=== PATIENT | male | born 1950 | race Caucasian/White ===

== ENCOUNTER 2019-03-31 23:12 | Emergency (ER) | payer MEDICARE ==
[~2019-03-31] VITALS: Ht 170.2 cm; Wt 56.8 kg
[2019-03-31] MEDS ORDERED: acetaminophen 325mg tablet PO ONE ×2 (23:25→23:55)
[2019-03-31] MEDS ORDERED: normal saline 1000ML IV soln IVB ONE (23:55)
[2019-04-01 00:34] LABS: BASOPHILS # (AUTO) 0.2 X10'3 (0-0.2); BASOPHILS % (AUTO) 1.6 % (0-1); EOSINOPHILS # (AUTO) 0.2 X10'3 (0-0.9); EOSINOPHILS % (AUTO) 1.1 % (0-6); HEMATOCRIT 43.7 % (42.0-52.0); LYMPHOCYTES # (AUTO) 1.4 X10'3 (1.1-4.8); LYMPHOCYTES % (AUTO) 9.8 % (21-51); MEAN CORPUSCULAR HEMOGLOBIN 31.9 PG (27.0-31.0); MEAN CORPUSCULAR HGB CONC 34.4 g/dL (33.0-36.5); MEAN CORPUSCULAR VOLUME 92.9 FL (78-98); MEAN PLATELET VOLUME 7.6 FL (7.4-10.4); MONOCYTES # (AUTO) 1.6 X10'3 (0-0.9); MONOCYTES % (AUTO) 10.7 % (2-12); NEUTROPHILS # (AUTO) 11.1 X10'3 (1.8-7.7); NEUTROPHILS % (AUTO) 76.8 % (42-75); PLATELET COUNT 316 X10'3 (140-440); RED BLOOD COUNT 4.71 X10'6 (4.70-6.10); RED CELL DISTRIBUTION WIDTH 13.4 % (11.5-14.5); WHITE BLOOD COUNT 14.5 X10'3 (4.5-11.0)
[2019-04-01 00:37] LABS: ALANINE AMINOTRANSFERASE 50 U/L (12-78); ALBUMIN 3.8 G/DL (3.4-5.0); ALKALINE PHOSPHATASE 155 IU/L (46-116); ANION GAP 8 (8-16); ASPARTATE AMINO TRANSFERASE 28 U/L (10-37); BILIRUBIN,TOTAL 0.2 MG/DL (0.1-1.0); BLOOD UREA NITROGEN 16 MG/DL (7-18); BUN/CREATININE RATIO 15.4 (5.4-32.0); CALCIUM 8.9 MG/DL (8.5-10.1); CHLORIDE 103 MMOL/L (99-107); CREATININE 1.04 MG/DL (0.60-1.10); GLUCOSE 113 MG/DL (70-104); POTASSIUM 4.5 MMOL/L (3.5-5.1); SODIUM 138 MMOL/L (135-145); TOTAL CARBON DIOXIDE 27.5 MMOL/L (24-32); TOTAL PROTEIN 7.8 G/DL (6.4-8.2); eGFR 71 ML/MIN
[2019-04-01] MEDS ORDERED: ketorolac tromethamine 15mg/ml inj. IV ONE (00:45)
[2019-04-01 01:08] LABS: PLATELET ESTIMATE NORMAL; TOTAL CELLS COUNTED 100
[2019-04-01] MEDS ORDERED: DOXYCYCLINE 100MG CAPSULE PO STA (01:13)
[2019-04-01] MEDS ORDERED: triamcinolone acetonide 40mg/ml inj IJ ONE (01:15)
[2019-04-01] MEDS ORDERED: DOXY100C2 PO (01:16)
[2019-04-01] MEDS ORDERED: PRED20TA PO (01:16)
[2019-04-01 01:58] VITALS: BP 124/76
== END 2019-04-01 02:01 | disposition home or self-care (01) ==
LOC: ER 23:12
DX: J06.9 Acute upper respiratory infection, unspecified (principal); J44.9 Chronic obstructive pulmonary disease, unspecified; F17.210 Nicotine dependence, cigarettes, uncomplicated; Z56.0 Unemployment, unspecified; Z79.899 Other long term (current) drug therapy
CPT/HCPCS: 36415; 71046; 80053; 83605; 84145; 85025; 87502; 87503; 96374; 96375; 99284; J1885; J3301; J7030

== ENCOUNTER 2019-06-15 23:54 | Emergency (ER) | payer MEDICARE ==
[~2019-06-15] VITALS: Ht 170.2 cm; Wt 53.4 kg
[2019-06-16 00:03] VITALS: BP 117/72
== END 2019-06-16 00:24 | disposition home or self-care (01) ==
LOC: ER 23:54
DX: S80.822A Blister (nonthermal), left lower leg, initial encounter (principal); J44.9 Chronic obstructive pulmonary disease, unspecified; F17.200 Nicotine dependence, unspecified, uncomplicated; Z56.0 Unemployment, unspecified; Z88.8 Allergy status to other drugs, medicaments and biological substances; X58.XXXA Exposure to other specified factors, initial encounter; Y93.89 Activity, other specified; Y92.89 Other specified places as the place of occurrence of the external cause; Y99.8 Other external cause status
CPT/HCPCS: 99281

== ENCOUNTER 2019-07-12 03:40 | Emergency (ER) | payer MEDICARE ==
[~2019-07-12] VITALS: Ht 167.6 cm; Wt 59.1 kg
[2019-07-12 03:43] VITALS: BP 149/78
[2019-07-12] MEDS ORDERED: AMOX500C2 PO (03:48)
== END 2019-07-12 03:52 | disposition home or self-care (01) ==
LOC: ER 03:41
DX: R68.84 Jaw pain (principal); J44.9 Chronic obstructive pulmonary disease, unspecified; Z56.0 Unemployment, unspecified; Z88.8 Allergy status to other drugs, medicaments and biological substances; Z79.2 Long term (current) use of antibiotics
CPT/HCPCS: 99283

== ENCOUNTER 2020-10-12 10:28 | Inpatient (IN) | payer MEDICARE ==
[~2020-10-12] VITALS: Ht 170.2 cm; Wt 59.1 kg
[2020-10-12] MEDS ORDERED: metoclopramide 5 mg/ml inj IV ONE (10:40)
[2020-10-12] MEDS ORDERED: diphenhydrAMINE 50 mg/ml inj IV ONE (10:40)
[2020-10-12 11:09] LABS: BASOPHILS # (AUTO) 0.1 X10'3 (0-0.2); BASOPHILS % (AUTO) 1.1 % (0-1); EOSINOPHILS # (AUTO) 0.4 X10'3 (0-0.9); EOSINOPHILS % (AUTO) 4.8 % (0-6); HEMATOCRIT 40.6 % (42.0-52.0); HEMOGLOBIN 13.4 g/dl (14.0-17.9); LYMPHOCYTES % (AUTO) 24.2 % (21-51); MEAN CORPUSCULAR HEMOGLOBIN 30.3 PG (27.0-31.0); MEAN CORPUSCULAR HGB CONC 33.1 g/dL (33.0-36.5); MEAN CORPUSCULAR VOLUME 91.6 FL (78-98); MONOCYTES # (AUTO) 0.9 X10'3 (0-0.9); MONOCYTES % (AUTO) 11.2 % (2-12); NEUTROPHILS # (AUTO) 4.8 X10'3 (1.8-7.7); NEUTROPHILS % (AUTO) 58.7 % (42-75); PLATELET COUNT 338 X10'3 (140-440); RED BLOOD COUNT 4.43 X10'6 (4.70-6.10); RED CELL DISTRIBUTION WIDTH 13.1 % (11.5-14.5); WHITE BLOOD COUNT 8.2 X10'3 (4.5-11.0)
[2020-10-12 11:17] LABS: ALANINE AMINOTRANSFERASE 37 U/L (12-78); ALBUMIN 3.4 G/DL (3.4-5.0); ALBUMIN/GLOBULIN RATIO 0.9 (1.1-1.5); ALKALINE PHOSPHATASE 112 IU/L (46-116); ANION GAP 9 (8-16); ASPARTATE AMINO TRANSFERASE 16 U/L (10-37); BILIRUBIN,TOTAL 0.3 MG/DL (0.1-1.0); BLOOD UREA NITROGEN 15 MG/DL (7-18); BUN/CREATININE RATIO 15.3 (5.4-32.0); CALCIUM 8.3 MG/DL (8.5-10.1); CHLORIDE 105 MMOL/L (99-107); CREATININE 0.98 MG/DL (0.60-1.10); GLUCOSE 113 MG/DL (70-104); POTASSIUM 3.9 MMOL/L (3.5-5.1); SODIUM 140 MMOL/L (135-145); TOTAL CARBON DIOXIDE 26.3 MMOL/L (24-32); eGFR 76 ML/MIN
[2020-10-12 11:18] LABS: PARTIAL THROMBOPLASTIN TIME 25 SECONDS (22-32)
[2020-10-12 11:20] LABS: TROPONIN I < 0.04 NG/ML (0.0-0.05)
[2020-10-12] MEDS ORDERED: iohexol 350MG/ML 100ml bottle IV ONE (11:51)
[2020-10-12] MEDS ORDERED: mag hydrox/Alum hydrox/simeth 30ml oral suspension PO PRN (12:00)
[2020-10-12] MEDS ORDERED: magnesium hydroxide 30ml (MOM) UD suspension PO PRN (12:00)
[2020-10-12] MEDS ORDERED: acetaminophen 325mg tablet PO PRN (12:00)
[2020-10-12] MEDS ORDERED: ondansetron/PF 4mg/2ml inj IV PRN (12:00)
[2020-10-12] MEDS: normal saline 1000ml 1,000 ML IV SCH ×2 (13:30→16:47)
[2020-10-12 13:45] LABS: CHOL/HDL RATIO 3.5 (0.00-4.99); CHOLESTEROL 193 MG/DL (0-200); HDL CHOLESTEROL 55 MG/DL (35-60); LDL CHOLESTEROL 116 MG/DL (50-100); TRIGLYCERIDES 75 MG/DL (20-135)
--- NOTE | 2020-10-12 14:47 | NUR ---
recd report from [facility]
--- NOTE | 2020-10-12 15:34 | NUR ---
recd pt from MRI
[2020-10-12 15:40] VITALS: BP 133/57
[2020-10-12] MEDS ORDERED: NO HOME MEDS (15:45)
--- NOTE | 2020-10-12 15:56 | NUR ---
PAGED DR STRATTON RE: PAGER ID: [phone] MESSAGE: STANLEY SMALLS. DR MCKEON (RADIOLOGIST) REQ A CALL BACK . O/N ALDO [id number]
--- NOTE | 2020-10-12 16:06 | NUR ---
PER DR STRATTON OK TO FEED IF PASSES NURSING BEDSIDE SWALLOW EVAL
[2020-10-12] MEDS: clopidogrel 75mg tablet PO SCH (16:47)
[2020-10-12 18:00] VITALS: BP 142/74
--- NOTE | 2020-10-12 18:15 | NUR ---
Patient in room ORTHO 4016. I have received report from Dora OTERO and had the opportunity to ask questions and assume patient care.
--- NOTE | 2020-10-12 18:25 | NUR ---
Problems reprioritized. Patient report given, questions answered & plan of care reviewed with katie farmer.
[2020-10-12] MEDS: heparin, porcine 5000 units/ml vial SQ SCH (19:48)
[2020-10-12 22:00] VITALS: BP 121/66
[2020-10-13 02:00] VITALS: BP 112/63
[2020-10-13] MEDS: normal saline 1000ml 1,000 ML IV SCH (02:07)
[2020-10-13 06:00] VITALS: BP 114/62
[2020-10-13 06:13] LABS: BASOPHILS # (AUTO) 0.1 X10'3 (0-0.2); BASOPHILS % (AUTO) 0.8 % (0-1); EOSINOPHILS # (AUTO) 0.3 X10'3 (0-0.9); EOSINOPHILS % (AUTO) 3.6 % (0-6); HEMATOCRIT 38.5 % (42.0-52.0); LYMPHOCYTES # (AUTO) 2.6 X10'3 (1.1-4.8); LYMPHOCYTES % (AUTO) 27.6 % (21-51); MEAN CORPUSCULAR HEMOGLOBIN 31.2 PG (27.0-31.0); MEAN CORPUSCULAR HGB CONC 33.7 g/dL (33.0-36.5); MEAN CORPUSCULAR VOLUME 92.5 FL (78-98); MEAN PLATELET VOLUME 6.9 FL (7.4-10.4); MONOCYTES % (AUTO) 10.4 % (2-12); NEUTROPHILS # (AUTO) 5.4 X10'3 (1.8-7.7); NEUTROPHILS % (AUTO) 57.6 % (42-75); PLATELET COUNT 333 X10'3 (140-440); RED BLOOD COUNT 4.16 X10'6 (4.70-6.10); RED CELL DISTRIBUTION WIDTH 13.4 % (11.5-14.5); WHITE BLOOD COUNT 9.4 X10'3 (4.5-11.0)
--- NOTE | 2020-10-13 06:33 | NUR ---
Problems reprioritized. Patient report given, questions answered & plan of care reviewed with Suri OTERO.
[2020-10-13 06:35] LABS: ANION GAP 7 (8-16); BLOOD UREA NITROGEN 11 MG/DL (7-18); BUN/CREATININE RATIO 11.6 (5.4-32.0); CHLORIDE 106 MMOL/L (99-107); CREATININE 0.95 MG/DL (0.60-1.10); GLUCOSE 104 MG/DL (70-104); SODIUM 141 MMOL/L (135-145); TOTAL CARBON DIOXIDE 27.8 MMOL/L (24-32); eGFR 79 ML/MIN
[2020-10-13] MEDS ORDERED: atorvastatin 20mg tablet PO SCH (08:00)
[2020-10-13] MEDS ORDERED: aspirin 325mg tablet, delayed-release (Ecotrin) PO SCH (08:00)
[2020-10-13 10:00] VITALS: BP 106/54
[2020-10-13] MEDS ORDERED: ASPI-1071 PO (10:16)
[2020-10-13] MEDS ORDERED: ATOR20TA66 PO (10:16)
[2020-10-13] MEDS ORDERED: CLOP75TA34 PO (10:16)
[2020-10-13] MEDS: clopidogrel 75mg tablet PO SCH (10:55)
[2020-10-13] MEDS: heparin, porcine 5000 units/ml vial SQ SCH (10:56)
--- NOTE | 2020-10-13 15:25 | NUR ---
pt seems very drowsy today. He is arousable but wants to fall back asleep. He answers questions appropriately. I discussed concerns with Danyell antunez stroke RN. Pt has passed PT, ST, and received all medications and imaging recommendations.
--- NOTE | 2020-10-13 15:28 | NUR ---
I called and spoke to Charles Dockery pt's neighbor, and he agrees to come pick the pt.
== END 2020-10-13 15:50 | disposition home or self-care (01) | DRG 66 ==
LOC: ER 10:28 → ED HOLD 12:02 → EDBEDREQ 14:17 → ORTHO 4S 15:31
PROVIDERS: ADMIT Family Medicine; ATTEND Family Medicine
PROC: B3251ZZ Computerized Tomography (CT Scan) of Bilateral Common Carotid Arteries using Low Osmolar Contrast (ICD-10-PCS; principal; 2020-10-12)
PROC: B32G1ZZ Computerized Tomography (CT Scan) of Bilateral Vertebral Arteries using Low Osmolar Contrast (ICD-10-PCS; 2020-10-12)
PROC: B32R1ZZ Computerized Tomography (CT Scan) of Intracranial Arteries using Low Osmolar Contrast (ICD-10-PCS; 2020-10-12)
PROC: B3281ZZ Computerized Tomography (CT Scan) of Bilateral Internal Carotid Arteries using Low Osmolar Contrast (ICD-10-PCS; 2020-10-12)
DX: I63.9 Cerebral infarction, unspecified (principal); E78.5 Hyperlipidemia, unspecified; G44.009 Cluster headache syndrome, unspecified, not intractable; R29.700 NIHSS score 0; H53.142 Visual discomfort, left eye; J44.9 Chronic obstructive pulmonary disease, unspecified; Z87.891 Personal history of nicotine dependence; Z88.8 Allergy status to other drugs, medicaments and biological substances; Z87.01 Personal history of pneumonia (recurrent); Z90.49 Acquired absence of other specified parts of digestive tract; Z56.0 Unemployment, unspecified
CPT/HCPCS: 36415; 70450; 70496; 70498; 70544; 70547; 70551; 71045; 80048; 80053; 80061; 82948; 84484; 85025; 85610; 85730; 87081; 93005; 93306; 93880; 96374; 96375; 97162; 97530; 99285; G0378; J1200; J1644; J2765; J7030; Q9967

== ENCOUNTER 2021-09-03 00:25 | Inpatient (IN) | payer MEDICARE ==
[~2021-09-03] VITALS: Ht 170.2 cm; Wt 61.0 kg
[2021-09-03] VITALS (18 sets, daily range): BP systolic 123–140; BP diastolic 61–79
[~2021-09-03 00:25] MED LIST: ASPI-1397 PO; ATOR40TA PO; CLOP75TA34 PO
[2021-09-03 01:05] LABS: BASOPHILS % (AUTO) 0.3 % (0-1); EOSINOPHILS # (AUTO) 0.1 X10'3 (0-0.9); EOSINOPHILS % (AUTO) 0.9 % (0-6); HEMATOCRIT 39.3 % (42.0-52.0); HEMOGLOBIN 13.3 g/dl (14.0-17.9); LYMPHOCYTES # (AUTO) 1.3 X10'3 (1.1-4.8); LYMPHOCYTES % (AUTO) 13.3 % (21-51); MEAN CORPUSCULAR HGB CONC 33.9 g/dL (33.0-36.5); MEAN CORPUSCULAR VOLUME 91.4 FL (78-98); MEAN PLATELET VOLUME 6.8 FL (7.4-10.4); MONOCYTES # (AUTO) 0.6 X10'3 (0-0.9); MONOCYTES % (AUTO) 6.7 % (2-12); NEUTROPHILS # (AUTO) 7.7 X10'3 (1.8-7.7); NEUTROPHILS % (AUTO) 78.8 % (42-75); PLATELET COUNT 299 X10'3 (140-440); RED CELL DISTRIBUTION WIDTH 13.8 % (11.5-14.5); WHITE BLOOD COUNT 9.7 X10'3 (4.5-11.0)
[2021-09-03 01:08] LABS: CLARITY,URINE CLEAR (Clear); COLOR,URINE YELLOW (Yellow); GLUCOSE, URINE 250 mg/dl (Neg); KETONES,URINE TRACE mg/dl (Neg); LEUKOCYTE ESTERASE ,URINE NEGATIVE (Neg); NITRITES, URINE NEGATIVE (Neg); OCCULT BLOOD,URINE NEGATIVE (Neg); PROTEIN,URINE NEGATIVE (Neg); UROBILINOGEN,URINE 0.2 E.U/dL (0.2-1.0)
[2021-09-03 01:18] LABS: UA COLLECTION TYPE NON-SPECIFIED
[2021-09-03 01:21] LABS: ALANINE AMINOTRANSFERASE 23 U/L (12-78); ALBUMIN 3.6 G/DL (3.4-5.0); ALKALINE PHOSPHATASE 105 IU/L (46-116); ANION GAP 9 (8-16); ASPARTATE AMINO TRANSFERASE 22 U/L (10-37); BILIRUBIN,TOTAL 0.4 MG/DL (0.1-1.0); BLOOD UREA NITROGEN 14 MG/DL (7-18); BUN/CREATININE RATIO 13.6 (5.4-32.0); CALCIUM 8.5 MG/DL (8.5-10.1); CHLORIDE 103 MMOL/L (99-107); CREATININE 1.03 MG/DL (0.60-1.10); GLUCOSE 146 MG/DL (70-104); LIPASE < 50 U/L (73-393); POTASSIUM 3.8 MMOL/L (3.5-5.1); SODIUM 137 MMOL/L (135-145); TOTAL CARBON DIOXIDE 25.5 MMOL/L (24-32); TOTAL PROTEIN 7.1 G/DL (6.4-8.2); eGFR 72 ML/MIN
[2021-09-03] MEDS ORDERED: normal saline 1000ML IV soln IVB ONE (03:20)
[2021-09-03] MEDS ORDERED: ondansetron/PF 4mg/2ml inj IV ONE (03:20)
[2021-09-03] MEDS: morphine 4 MG/ML inj SYRINge IV PRN ×2 (03:56→08:08)
--- NOTE | 2021-09-03 05:20 | NUR ---
WOKE PT. UP TO REASSES PAIN, PT. STATES HE IS "FEELING A LOT BETTER".
--- NOTE | 2021-09-03 05:36 | NUR ---
NOTIFIED DR. LLANOS OF PTS. BP OF 181/100.
[2021-09-03] MEDS ORDERED: morphine 4 MG/ML inj SYRINge IV ONE (08:30)
--- NOTE | 2021-09-03 09:30 | NUR ---
Patient sleeping. Woke up patient to assess the need for the pending Morphine order and he stated that the last dose gave him relief.
[2021-09-03] MEDS ORDERED: piperacillin/tazo 3.375gm/50ml 50 ML IV ONE (11:00)
[2021-09-03] MEDS ORDERED: HYDROmorphone/PF 0.2 MG/ML SYRINGE IV PRN (11:05)
[2021-09-03] MEDS ORDERED: magnesium Cl slow-release 64mg tablet PO PRN (11:05)
[2021-09-03] MEDS ORDERED: magnesium 4gm in 100ml NS 100 ML IV PRN (11:05)
[2021-09-03] MEDS ORDERED: POTASSIUM BICARB 20meq eff tab 20 MEQ TABLET.EFF PO PRN ×2 (11:05)
[2021-09-03] MEDS ORDERED: ondansetron/PF 4mg/2ml inj IV PRN ×2 (11:05→17:00)
[2021-09-03] MEDS ORDERED: ondansetron 4mg rapidly disintigrating tab PO PRN (11:05)
[2021-09-03] MEDS ORDERED: potassium CL 10mEq/100ml bag 100 ML IV PRN (11:05)
[2021-09-03] MEDS ORDERED: magnesium hydroxide 30ml (MOM) UD suspension PO PRN (11:05)
[2021-09-03] MEDS ORDERED: acetaminophen 650mg rectal suppository RC PRN (11:05)
[2021-09-03] MEDS ORDERED: metoclopramide 5 mg/ml inj IV PRN (11:05)
[2021-09-03] MEDS ORDERED: magnesium 2GM in 50ml NS 50 ML IV PRN (11:05)
[2021-09-03] MEDS ORDERED: bisacodyl 10mg suppository rectal RC PRN (11:05)
[2021-09-03] MEDS ORDERED: acetaminophen 325mg tablet PO PRN (11:05)
[2021-09-03] MEDS ORDERED: magnesium 2GM in 50ml NS 50 ML IV ONE (11:25)
[2021-09-03 12:15] LABS: APTT 26 SECONDS (22-32); POTASSIUM 4.1 MMOL/L (3.5-5.1)
[2021-09-03] MEDS ORDERED: hydrALAZINE 20mg/ml inj. IV PRN (12:15)
[2021-09-03] MEDS: piperacillin/tazo 3.375gm/50ml 50 ML IV SCH (12:46)
[2021-09-03] MEDS: normal saline 1000ml 1,000 ML IV SCH ×2 (12:46→20:57)
[2021-09-03] MEDS ORDERED: INDOCYANINE GREEN 25 MG/10 ML VIAL IV STA (15:18)
[2021-09-03] MEDS ORDERED: BUPIVAcaine 0.5% inj/PF 30 ML ONE (16:54)
[2021-09-03] MEDS ORDERED: LIDOcaine 1% 30ml preserv. free vial ONE (16:54)
[2021-09-03] MEDS ORDERED: ringers solution, lacted 1,000 ML IV SCH (17:00)
[2021-09-03] MEDS ORDERED: meperidine/PF 25mg/ml syringe IV PRN ×2 (17:00)
[2021-09-03] MEDS ORDERED: proCHLORperazine 10 MG/2 ml inj IV PRN (17:00)
[2021-09-03] MEDS ORDERED: morphine 2 MG/ML inj. syringe IV PRN (17:00)
[2021-09-03] MEDS ORDERED: morphine 4 MG/ML inj SYRINge IV PRN (17:00)
[2021-09-03] MEDS ORDERED: ePHEDrine 50MG/ML INJ. ONE (17:11)
[2021-09-03] MEDS ORDERED: fentaNYL/PF 50MCG/1 ML 2ML syringe ONE (17:11)
[2021-09-03] MEDS ORDERED: rocuronium 10mg/ml inj IV ONE (17:11)
[2021-09-03] MEDS ORDERED: propofol inj 20 ML IV ONE (17:11)
[2021-09-03] MEDS ORDERED: sevoflurane 250ml liquid IH ONE (17:11)
[2021-09-03] MEDS ORDERED: ceFAZolin 1000mg inj ONE ×2 (17:36)
[2021-09-03] MEDS ORDERED: BUPIVAcaine 0.5% inj/PF 30 ml vial IJ ONE (17:48)
[2021-09-03] MEDS ORDERED: HYDROcodone/acetaminophen 5mg/325mg tablet PO PRN (18:25)
[2021-09-03] MEDS ORDERED: naloxone 0.4 mg/ml inj IV PRN (18:25)
[2021-09-03] MEDS ORDERED: glycopyrrolate 0.2mg/ml inj ONE (18:31)
[2021-09-03] MEDS ORDERED: neostigmine methylsulfate 1 MG/ML 10ml vial ONE (18:31)
--- NOTE | 2021-09-03 18:33 | NUR ---
Received from OR via [facility] , accompanied by Anesthesiologist and report given by Golden Anesthesiolgist. Patient waking up, denies pain, VSS, scd on, 20g piv to Right AC, dressing to abdomen lap sites x4 bandaids cdi. Addendum: 09/03/21 at 1854 by Shreyas More RN Amended: Links added.
[2021-09-03] MEDS: meperidine/PF 25mg/ml syringe IV PRN ×2 (19:19→19:25)
--- NOTE | 2021-09-03 19:33 | NUR ---
PATIENT HAS MET ALL CRITERIA FOR TRANSFER TO SURGICAL FLOOR. VSS. DRESSINGS INTACT. BED LOW, CALL LIGHT PRESENT AND 2 RAILS UP. RN PRESENT TO ACCEPT CARE OF PATIENT AND REPORT HAS BEEN CALLED. ALL QUESTIONS ANSWERED TO ACCEPTING RN. Addendum: 09/03/21 at 195 by Shreyas More RN Amended: Links added.
--- NOTE | 2021-09-03 19:40 | NUR ---
Patient in room ORTHO 4010A. I have received report from Arian OTEROdieing out machine operator, had the opportunity to ask questions and assume patient care.
[2021-09-03] MEDS: K and/or MAG REPLACEMENT MC SCH (20:00)
[2021-09-03] MEDS: heparin, porcine 5000 units/ml vial SQ SCH (20:53)
[2021-09-03] MEDS: docusate sod 100mg capsule PO SCH (20:53)
[2021-09-03] MEDS ORDERED: temazepam 15mg capsule PO PRN (21:00)
--- NOTE | 2021-09-03 21:18 | NUR ---
DECREASED FIELD OF VISION FROM OLD CVA, STILL ABLE TO DRIVE. Addendum: 09/03/21 at 2118 by Tammie Shah RN Amended: Links added.
[2021-09-04] MEDS: piperacillin/tazo 3.375gm/50ml 50 ML IV SCH ×3 (00:09→16:22)
[2021-09-04] MEDS: HYDROcodone/acetaminophen 10/325mg tab PO PRN ×3 (01:25→12:45)
[2021-09-04] MEDS ORDERED: LIDOcaine 2% 10ml TOPICAL JELLY (Urojet) TP ONE (01:50)
[2021-09-04 03:30] VITALS: BP 132/68
[2021-09-04 04:47] LABS: BASOPHILS % (AUTO) 0.3 % (0-1); EOSINOPHILS % (AUTO) 0 % (0-6); HEMATOCRIT 36.8 % (42.0-52.0); HEMOGLOBIN 12.3 g/dl (14.0-17.9); LYMPHOCYTES # (AUTO) 0.7 X10'3 (1.1-4.8); LYMPHOCYTES % (AUTO) 7.9 % (21-51); MEAN CORPUSCULAR HEMOGLOBIN 30.3 PG (27.0-31.0); MEAN CORPUSCULAR HGB CONC 33.5 g/dL (33.0-36.5); MEAN CORPUSCULAR VOLUME 90.4 FL (78-98); MEAN PLATELET VOLUME 7.2 FL (7.4-10.4); MONOCYTES # (AUTO) 0.7 X10'3 (0-0.9); MONOCYTES % (AUTO) 8.6 % (2-12); NEUTROPHILS # (AUTO) 7.1 X10'3 (1.8-7.7); NEUTROPHILS % (AUTO) 83.2 % (42-75); PLATELET COUNT 266 X10'3 (140-440); RED BLOOD COUNT 4.07 X10'6 (4.70-6.10); RED CELL DISTRIBUTION WIDTH 13.3 % (11.5-14.5); WHITE BLOOD COUNT 8.6 X10'3 (4.5-11.0)
[2021-09-04 05:00] LABS: ALANINE AMINOTRANSFERASE 25 U/L (12-78); ALBUMIN 2.9 G/DL (3.4-5.0); ALBUMIN/GLOBULIN RATIO 0.9 (1.1-1.5); ALKALINE PHOSPHATASE 95 IU/L (46-116); ANION GAP 8 (8-16); ASPARTATE AMINO TRANSFERASE 20 U/L (10-37); BILIRUBIN,TOTAL 0.5 MG/DL (0.1-1.0); BLOOD UREA NITROGEN 12 MG/DL (7-18); CALCIUM 8.1 MG/DL (8.5-10.1); CHLORIDE 107 MMOL/L (99-107); CREATININE 1.09 MG/DL (0.60-1.10); GLUCOSE 126 MG/DL (70-104); MAGNESIUM 2.5 MG/DL (1.5-2.4); POTASSIUM 4.3 MMOL/L (3.5-5.1); SODIUM 141 MMOL/L (135-145); TOTAL CARBON DIOXIDE 26.3 MMOL/L (24-32); eGFR 67 ML/MIN
--- NOTE | 2021-09-04 06:26 | NUR ---
I have received report from MONIQUE Castillo and had the opportunity to ask questions and assume patient care.
[2021-09-04 06:40] VITALS: BP 117/62
--- NOTE | 2021-09-04 06:40 | NUR ---
Patient painful and refusing to walk at this time, will medicate for pain and get patient ambulating. Q4 hour ambulation with nursing order put in.
[2021-09-04] MEDS: normal saline 1000ml 1,000 ML IV SCH ×3 (07:05→19:38)
[2021-09-04] MEDS: K and/or MAG REPLACEMENT MC SCH ×2 (07:28→20:00)
[2021-09-04] MEDS: heparin, porcine 5000 units/ml vial SQ SCH ×2 (07:32→19:39)
[2021-09-04] MEDS: docusate sod 100mg capsule PO SCH ×2 (07:32→19:39)
[2021-09-04] MEDS: HYDROmorphone inj. 0.5 MG/0.5 ML DISP.SYRIN IV PRN ×2 (07:43→16:22)
[2021-09-04] MEDS: mag hydrox/Alum hydrox/simeth 30ml oral suspension PO PRN ×2 (07:46→16:26)
--- NOTE | 2021-09-04 09:00 | NUR ---
ambulated patient 300 feet x1 assist
[2021-09-04] MEDS: tamsulosin 0.4mg capsule PO SCH (09:52)
[2021-09-04 10:00] VITALS: BP 107/56
--- NOTE | 2021-09-04 12:19 | NUR ---
I BROOKLYN OTERO AGREE WITH WINDOW MACHINE OPERATOR ASSESSMENT
[2021-09-04 14:00] VITALS: BP 137/79
[2021-09-04 18:00] VITALS: BP 138/71
--- NOTE | 2021-09-04 18:12 | NUR ---
Problems reprioritized. Patient report given, questions answered & plan of care reviewed with MONIQUE Castillo.
--- NOTE | 2021-09-04 20:00 | NUR ---
I agree with the rest of COST REPORT CLERK Anna assessment.
[2021-09-04 22:00] VITALS: BP 136/80
[2021-09-04] MEDS: acetaminophen 325mg tablet PO PRN ×2 (22:11→23:29)
[2021-09-05] MEDS: piperacillin/tazo 3.375gm/50ml 50 ML IV SCH ×3 (00:22→17:14)
[2021-09-05] MEDS: HYDROcodone/acetaminophen 5mg/325mg tablet PO PRN ×4 (00:22→17:09)
[2021-09-05 02:00] VITALS: BP 113/58
[2021-09-05] MEDS: normal saline 1000ml 1,000 ML IV SCH ×2 (04:52→19:16)
[2021-09-05 06:36] LABS: BASOPHILS % (AUTO) 0.2 % (0-1); EOSINOPHILS % (AUTO) 0.4 % (0-6); HEMOGLOBIN 12.7 g/dl (14.0-17.9); LYMPHOCYTES # (AUTO) 1.4 X10'3 (1.1-4.8); LYMPHOCYTES % (AUTO) 20.5 % (21-51); MEAN CORPUSCULAR HEMOGLOBIN 30.3 PG (27.0-31.0); MEAN CORPUSCULAR HGB CONC 33.3 g/dL (33.0-36.5); MEAN PLATELET VOLUME 7.3 FL (7.4-10.4); MONOCYTES # (AUTO) 1.5 X10'3 (0-0.9); MONOCYTES % (AUTO) 22.3 % (2-12); NEUTROPHILS # (AUTO) 3.7 X10'3 (1.8-7.7); NEUTROPHILS % (AUTO) 56.6 % (42-75); PLATELET COUNT 221 X10'3 (140-440); RED BLOOD COUNT 4.18 X10'6 (4.70-6.10); RED CELL DISTRIBUTION WIDTH 13.9 % (11.5-14.5); WHITE BLOOD COUNT 6.6 X10'3 (4.5-11.0)
[2021-09-05 07:01] LABS: ALANINE AMINOTRANSFERASE 33 U/L (12-78); ALBUMIN 2.7 G/DL (3.4-5.0); ALBUMIN/GLOBULIN RATIO 0.8 (1.1-1.5); ALKALINE PHOSPHATASE 136 IU/L (46-116); ANION GAP 9 (8-16); ASPARTATE AMINO TRANSFERASE 35 U/L (10-37); BILIRUBIN,TOTAL 0.5 MG/DL (0.1-1.0); BLOOD UREA NITROGEN 11 MG/DL (7-18); BUN/CREATININE RATIO 9.6 (5.4-32.0); CALCIUM 7.8 MG/DL (8.5-10.1); CHLORIDE 103 MMOL/L (99-107); CREATININE 1.14 MG/DL (0.60-1.10); GLUCOSE 106 MG/DL (70-104); MAGNESIUM 2.2 MG/DL (1.5-2.4); SODIUM 138 MMOL/L (135-145); eGFR 64 ML/MIN
[2021-09-05 07:58] LABS: TOTAL CELLS COUNTED 100
[2021-09-05 07:59] LABS: PLATELET ESTIMATE NORMAL
[2021-09-05] MEDS: heparin, porcine 5000 units/ml vial SQ SCH ×2 (09:23→09:30)
[2021-09-05] MEDS: docusate sod 100mg capsule PO SCH ×2 (09:30→19:23)
[2021-09-05 10:00] VITALS: BP 140/59
[2021-09-05 18:00] VITALS: BP 168/97
--- NOTE | 2021-09-05 18:35 | NUR ---
Patient in room ORTHO 4010A. I have received report from Danyell Joshi and had the opportunity to ask questions and assume patient care.
[2021-09-05] MEDS: tamsulosin 0.4mg capsule PO SCH (19:26)
[2021-09-05] MEDS: K and/or MAG REPLACEMENT MC SCH (20:00)
[2021-09-05] MEDS: HYDROcodone/acetaminophen 10/325mg tab PO PRN (21:56)
[2021-09-05 22:00] VITALS: BP 150/88
[2021-09-06] MEDS: piperacillin/tazo 3.375gm/50ml 50 ML IV SCH ×4 (00:10→23:55)
[2021-09-06] MEDS: HYDROcodone/acetaminophen 10/325mg tab PO PRN ×3 (02:33→21:12)
--- NOTE | 2021-09-06 03:44 | NUR ---
Agree with ORGAN GRINDER Anna assessment.
[2021-09-06] MEDS: normal saline 1000ml 1,000 ML IV SCH (04:45)
[2021-09-06 06:00] VITALS: BP_SYST 137; BP_SYST 168; BP_DIAS 71; BP_DIAS 97
[2021-09-06 06:17] LABS: EOSINOPHILS % (AUTO) 0.6 % (0-6); LYMPHOCYTES # (AUTO) 1.2 X10'3 (1.1-4.8); MONOCYTES # (AUTO) 1.2 X10'3 (0-0.9); RED CELL DISTRIBUTION WIDTH 13.9 % (11.5-14.5); WHITE BLOOD COUNT 4.5 X10'3 (4.5-11.0)
[2021-09-06 06:19] LABS: BASOPHILS % (AUTO) 0.4 % (0-1); HEMATOCRIT 38.9 % (42.0-52.0); MEAN CORPUSCULAR HEMOGLOBIN 30.4 PG (27.0-31.0); MEAN CORPUSCULAR HGB CONC 33.4 g/dL (33.0-36.5); MEAN CORPUSCULAR VOLUME 91.1 FL (78-98); MEAN PLATELET VOLUME 7.3 FL (7.4-10.4); MONOCYTES % (AUTO) 26.4 % (2-12); NEUTROPHILS % (AUTO) 45.6 % (42-75); PLATELET COUNT 206 X10'3 (140-440); RED BLOOD COUNT 4.27 X10'6 (4.70-6.10)
--- NOTE | 2021-09-06 06:26 | NUR ---
Patient in room ORTHO 4010. I have received report from Anna AMAYA and had the opportunity to ask questions and assume patient care.
[2021-09-06 06:32] LABS: ALANINE AMINOTRANSFERASE 34 U/L (12-78); ALBUMIN 2.7 G/DL (3.4-5.0); ALBUMIN/GLOBULIN RATIO 0.8 (1.1-1.5); ALKALINE PHOSPHATASE 149 IU/L (46-116); ANION GAP 8 (8-16); ASPARTATE AMINO TRANSFERASE 43 U/L (10-37); BILIRUBIN,TOTAL 0.3 MG/DL (0.1-1.0); BLOOD UREA NITROGEN 8 MG/DL (7-18); BUN/CREATININE RATIO 7.2 (5.4-32.0); CALCIUM 7.7 MG/DL (8.5-10.1); CHLORIDE 102 MMOL/L (99-107); CREATININE 1.11 MG/DL (0.60-1.10); GLUCOSE 122 MG/DL (70-104); POTASSIUM 3.7 MMOL/L (3.5-5.1); SODIUM 136 MMOL/L (135-145); TOTAL CARBON DIOXIDE 26.5 MMOL/L (24-32); TOTAL PROTEIN 6.1 G/DL (6.4-8.2); eGFR 66 ML/MIN
[2021-09-06 07:19] LABS: PLATELET ESTIMATE NORMAL; TOTAL CELLS COUNTED 100
[2021-09-06] MEDS: K and/or MAG REPLACEMENT MC SCH ×2 (08:00→20:00)
[2021-09-06] MEDS: docusate sod 100mg capsule PO SCH ×2 (09:52→20:54)
[2021-09-06] MEDS: heparin, porcine 5000 units/ml vial SQ SCH ×2 (09:53→20:54)
[2021-09-06 10:00] VITALS: BP 146/80
[2021-09-06] MEDS: acetaminophen 325mg tablet PO PRN (10:09)
--- NOTE | 2021-09-06 11:07 | NUR ---
PAGER ID: [phone] MESSAGE: Susannah [phone] re: Morgan Butler in 4010A. Pt temp 101.3. Pt states, "he does not feel well"
[2021-09-06 14:30] VITALS: BP 131/69
[2021-09-06 18:00] VITALS: BP 130/74
--- NOTE | 2021-09-06 18:00 | NUR ---
Patient in room ORTHO 4010. I have received report from SHANNA Davalos and had the opportunity to ask questions and assume patient care.
[2021-09-06] MEDS: tamsulosin 0.4mg capsule PO SCH (20:54)
[2021-09-06 22:00] VITALS: BP 131/70
[2021-09-07] MEDS: HYDROcodone/acetaminophen 10/325mg tab PO PRN ×2 (01:36→11:31)
[2021-09-07 02:00] VITALS: BP 139/77
--- NOTE | 2021-09-07 02:37 | NUR ---
Agree with Rossy AMAYA's physical assessment except in the areas that I added to my physical assessment on the patient.
--- NOTE | 2021-09-07 05:16 | NUR ---
I had been told that patient had been tested for COVID 09/06 day shift and it was negative. I couldn't find any record of this so I called lab and they had no record of a send out being done or any other test done yesterday on the patient so they recommended that we retest the patient. He was swabbed again and the lab called back with positive COVID results. I notified nursing bailer tenders supervisor and there is no reverse isolation rooms available now in hospital so I was told to close his door and wear appropriate isolation equipment. I also paged the curriculum consultant Md to notify her of results.
[2021-09-07 05:37] LABS: EOSINOPHILS # (AUTO) 0.1 X10'3 (0-0.9); HEMOGLOBIN 13.9 g/dl (14.0-17.9); MEAN PLATELET VOLUME 7.5 FL (7.4-10.4); MONOCYTES # (AUTO) 0.8 X10'3 (0-0.9)
[2021-09-07 05:41] LABS: BASOPHILS % (AUTO) 0.5 % (0-1); EOSINOPHILS % (AUTO) 1.4 % (0-6); HEMATOCRIT 41.6 % (42.0-52.0); LYMPHOCYTES # (AUTO) 1.8 X10'3 (1.1-4.8); LYMPHOCYTES % (AUTO) 45.7 % (21-51); MEAN CORPUSCULAR HEMOGLOBIN 30.1 PG (27.0-31.0); MEAN CORPUSCULAR HGB CONC 33.3 g/dL (33.0-36.5); MEAN CORPUSCULAR VOLUME 90.4 FL (78-98); MONOCYTES % (AUTO) 20.5 % (2-12); NEUTROPHILS # (AUTO) 1.3 X10'3 (1.8-7.7); NEUTROPHILS % (AUTO) 31.9 % (42-75); PLATELET COUNT 217 X10'3 (140-440); RED CELL DISTRIBUTION WIDTH 14.1 % (11.5-14.5)
[2021-09-07 05:49] LABS: ALANINE AMINOTRANSFERASE 51 U/L (12-78); ALBUMIN 2.8 G/DL (3.4-5.0); ALBUMIN/GLOBULIN RATIO 0.8 (1.1-1.5); ALKALINE PHOSPHATASE 170 IU/L (46-116); ANION GAP 7 (8-16); ASPARTATE AMINO TRANSFERASE 69 U/L (10-37); BILIRUBIN,TOTAL 0.4 MG/DL (0.1-1.0); BLOOD UREA NITROGEN 10 MG/DL (7-18); CALCIUM 8.1 MG/DL (8.5-10.1); CHLORIDE 101 MMOL/L (99-107); CREATININE 1.25 MG/DL (0.60-1.10); GLUCOSE 111 MG/DL (70-104); MAGNESIUM 2.1 MG/DL (1.5-2.4); POTASSIUM 3.8 MMOL/L (3.5-5.1); SODIUM 137 MMOL/L (135-145); TOTAL CARBON DIOXIDE 29.2 MMOL/L (24-32); TOTAL PROTEIN 6.5 G/DL (6.4-8.2); eGFR 57 ML/MIN
[2021-09-07 06:00] VITALS: BP 121/70
--- NOTE | 2021-09-07 06:12 | NUR ---
Problems reprioritized. Patient report given, questions answered & plan of care reviewed with SHANNA Davalos.
--- NOTE | 2021-09-07 06:37 | NUR ---
Patient in room ORTHO 4010. I have received report from Rossy AMAYA and had the opportunity to ask questions and assume patient care.
--- NOTE | 2021-09-07 07:51 | NUR ---
PAGER ID: [phone] MESSAGE: Morgan Butler in 6250A tested positive for covid
[2021-09-07] MEDS: K and/or MAG REPLACEMENT MC SCH (08:00)
[2021-09-07] MEDS: heparin, porcine 5000 units/ml vial SQ SCH (08:00)
[2021-09-07 08:15] LABS: PLATELET ESTIMATE NORMAL; TOTAL CELLS COUNTED 100
[2021-09-07] MEDS: piperacillin/tazo 3.375gm/50ml 50 ML IV SCH (09:02)
[2021-09-07] MEDS: docusate sod 100mg capsule PO SCH (09:02)
[2021-09-07] MEDS: normal saline 1000ml 1,000 ML IV SCH (09:03)
[2021-09-07] MEDS ORDERED: HYDR-3965 PO (09:33)
[2021-09-07 10:00] VITALS: BP 135/62
[2021-09-07 14:17] VITALS: BP 126/75
--- NOTE | 2021-09-07 16:32 | NUR ---
Explained all discharge and medication instructions to pt. Pt verbalized understanding. Piv d/c's, tip intact. Pt went home with 4 wheel walker that was dropped off by Anjana. Instructed pt to call Dr. Sow's office for a 2 week follow up appt. [place] prescription electronically sent to [facility] pharmacy on [address]. Pt escorted via wheelchair to the front entrance and was loaded into ABC cab.
== END 2021-09-07 16:18 | disposition home or self-care (01) | DRG 417 ==
LOC: ER 00:26 → ED HOLD 11:09 → ORTHO 4S 20:06
PROVIDERS: ADMIT Family Medicine; ATTEND Family Medicine
PROC: 8E0W4CZ Robotic Assisted Procedure of Trunk Region, Percutaneous Endoscopic Approach (ICD-10-PCS; 2021-09-03)
PROC: 0FT44ZZ Resection of Gallbladder, Percutaneous Endoscopic Approach (ICD-10-PCS; principal; 2021-09-03 17:11)
DX: K80.00 Calculus of gallbladder with acute cholecystitis without obstruction (principal); U07.1 COVID-19; N13.8 Other obstructive and reflux uropathy; I10 Essential (primary) hypertension; E78.5 Hyperlipidemia, unspecified; N40.1 Benign prostatic hyperplasia with lower urinary tract symptoms; J44.9 Chronic obstructive pulmonary disease, unspecified; N40.0 Benign prostatic hyperplasia without lower urinary tract symptoms; Z79.82 Long term (current) use of aspirin; Z86.16 Personal history of COVID-19; Z86.73 Personal history of transient ischemic attack (TIA), and cerebral infarction without residual deficits; Z88.8 Allergy status to other drugs, medicaments and biological substances
CPT/HCPCS: 36415; 71045; 74176; 76700; 80053; 81003; 83605; 83690; 83735; 84132; 85007; 85025; 85610; 85730; 87040; 87081; 88304; 96374; 96375; 97116; 97161; 97530; 99285; A4215; A4314; A4618; A6258; A7000; G0378; J0690; J1170; J1644; J2175; J2270; J2405; J2543; J2704; J2710; J3010; J3475; J3490; J7030; J7120; S0020; U0003; U0005

== ENCOUNTER 2021-09-09 15:36 | Emergency (ER) | payer MEDICARE ==
[~2021-09-09] VITALS: Ht 170.2 cm; Wt 61.4 kg
[~2021-09-09 15:36] MED LIST changes: -ATOR40TA PO; -CLOP75TA34 PO; +HYDR-3965 PO
[2021-09-09] MEDS ORDERED: normal saline 1000ML IV soln IVB ONE (16:45)
[2021-09-09] MEDS ORDERED: ketorolac trometh. 30mg/ml inj. IV ONE (16:45)
[2021-09-09 17:05] LABS: EOSINOPHILS # (AUTO) 0.1 X10'3 (0-0.9); HEMOGLOBIN 14.1 g/dl (14.0-17.9); MEAN PLATELET VOLUME 7.1 FL (7.4-10.4); RED CELL DISTRIBUTION WIDTH 13.9 % (11.5-14.5)
[2021-09-09 17:06] LABS: BASOPHILS % (AUTO) 0.5 % (0-1); EOSINOPHILS % (AUTO) 1.2 % (0-6); HEMATOCRIT 42.4 % (42.0-52.0); LYMPHOCYTES # (AUTO) 1.2 X10'3 (1.1-4.8); LYMPHOCYTES % (AUTO) 23.6 % (21-51); MEAN CORPUSCULAR HGB CONC 33.3 g/dL (33.0-36.5); MEAN CORPUSCULAR VOLUME 90.1 FL (78-98); MONOCYTES # (AUTO) 0.9 X10'3 (0-0.9); MONOCYTES % (AUTO) 17.4 % (2-12); NEUTROPHILS # (AUTO) 2.8 X10'3 (1.8-7.7); NEUTROPHILS % (AUTO) 57.3 % (42-75); PLATELET COUNT 236 X10'3 (140-440); WHITE BLOOD COUNT 4.9 X10'3 (4.5-11.0)
[2021-09-09 17:19] LABS: CLARITY,URINE CLEAR (Clear); COLOR,URINE YELLOW (Yellow); GLUCOSE, URINE NEGATIVE (Neg); KETONES,URINE NEGATIVE (Neg); LEUKOCYTE ESTERASE ,URINE TRACE (Neg); NITRITES, URINE NEGATIVE (Neg); OCCULT BLOOD,URINE NEGATIVE (Neg); PROTEIN,URINE NEGATIVE (Neg); UROBILINOGEN,URINE 0.2 E.U/dL (0.2-1.0)
[2021-09-09 17:20] LABS: ALANINE AMINOTRANSFERASE 358 U/L (12-78); ALBUMIN 3.3 G/DL (3.4-5.0); ALBUMIN/GLOBULIN RATIO 0.8 (1.1-1.5); ALKALINE PHOSPHATASE 281 IU/L (46-116); ANION GAP 7 (8-16); ASPARTATE AMINO TRANSFERASE 496 U/L (10-37); BILIRUBIN,TOTAL 0.4 MG/DL (0.1-1.0); BLOOD UREA NITROGEN 11 MG/DL (7-18); BUN/CREATININE RATIO 11.2 (5.4-32.0); CALCIUM 8.6 MG/DL (8.5-10.1); CHLORIDE 100 MMOL/L (99-107); CREATININE 0.98 MG/DL (0.60-1.10); GLUCOSE 118 MG/DL (70-104); LIPASE 51 U/L (73-393); POTASSIUM 4.4 MMOL/L (3.5-5.1); SODIUM 135 MMOL/L (135-145); TOTAL CARBON DIOXIDE 27.8 MMOL/L (24-32); TOTAL PROTEIN 7.5 G/DL (6.4-8.2); eGFR 76 ML/MIN
[2021-09-09 17:30] LABS: UA COLLECTION TYPE NON-SPECIFIED
[2021-09-09 17:31] LABS: MUCUS STRANDS FEW /LPF (Neg); SQUAMOUS EPITHELIAL CELL,UR FEW /LPF (FEW)
[2021-09-09 17:32] LABS: BACTERIA,URINE FEW /HPF (Neg); RBC,URINE 0-2 /HPF (0-2); WBC,URINE 0-4 /HPF (0-4)
[2021-09-09 20:40] VITALS: BP 143/65
--- NOTE | 2021-09-13 12:18 | NUR ---
Case Management DC follow up:Unable to contact Patient at this time via telephone,nor leave message ; mail box is full.
== END 2021-09-09 20:42 | disposition home or self-care (01) ==
LOC: ER 15:36
DX: U07.1 COVID-19 (principal); R79.89 Other specified abnormal findings of blood chemistry; J44.9 Chronic obstructive pulmonary disease, unspecified; Z56.0 Unemployment, unspecified; Z88.5 Allergy status to narcotic agent; Z79.899 Other long term (current) drug therapy; Z79.82 Long term (current) use of aspirin
CPT/HCPCS: 36415; 76700; 80053; 81001; 83690; 84145; 85025; 87088; 96361; 96374; 99284; J1885; J7030

== ENCOUNTER 2021-09-15 13:28 | Emergency (ER) | payer MEDICARE ==
[~2021-09-15] VITALS: Ht 170.2 cm; Wt 61.0 kg
[2021-09-15 14:38] LABS: BASOPHILS # (AUTO) 0.1 X10'3 (0-0.2); BASOPHILS % (AUTO) 0.6 % (0-1); EOSINOPHILS # (AUTO) 0.7 X10'3 (0-0.9); EOSINOPHILS % (AUTO) 6.7 % (0-6); HEMATOCRIT 39.9 % (42.0-52.0); HEMOGLOBIN 13.4 g/dl (14.0-17.9); LYMPHOCYTES # (AUTO) 1.6 X10'3 (1.1-4.8); LYMPHOCYTES % (AUTO) 15.7 % (21-51); MEAN CORPUSCULAR HEMOGLOBIN 30.4 PG (27.0-31.0); MEAN CORPUSCULAR HGB CONC 33.7 g/dL (33.0-36.5); MEAN CORPUSCULAR VOLUME 90.2 FL (78-98); MEAN PLATELET VOLUME 6.9 FL (7.4-10.4); MONOCYTES # (AUTO) 1.1 X10'3 (0-0.9); MONOCYTES % (AUTO) 10.4 % (2-12); NEUTROPHILS # (AUTO) 6.9 X10'3 (1.8-7.7); NEUTROPHILS % (AUTO) 66.6 % (42-75); PLATELET COUNT 482 X10'3 (140-440); RED BLOOD COUNT 4.42 X10'6 (4.70-6.10); RED CELL DISTRIBUTION WIDTH 13.5 % (11.5-14.5); WHITE BLOOD COUNT 10.4 X10'3 (4.5-11.0)
[2021-09-15 14:50] LABS: ALANINE AMINOTRANSFERASE 116 U/L (12-78); ALBUMIN 3.1 G/DL (3.4-5.0); ALBUMIN/GLOBULIN RATIO 0.7 (1.1-1.5); ALKALINE PHOSPHATASE 232 IU/L (46-116); ANION GAP 6 (8-16); ASPARTATE AMINO TRANSFERASE 42 U/L (10-37); BILIRUBIN,TOTAL 0.3 MG/DL (0.1-1.0); BLOOD UREA NITROGEN 17 MG/DL (7-18); BUN/CREATININE RATIO 18.3 (5.4-32.0); CALCIUM 8.7 MG/DL (8.5-10.1); CHLORIDE 103 MMOL/L (99-107); CREATININE 0.93 MG/DL (0.60-1.10); GLUCOSE 153 MG/DL (70-104); LIPASE 65 U/L (73-393); POTASSIUM 4.4 MMOL/L (3.5-5.1); SODIUM 136 MMOL/L (135-145); TOTAL CARBON DIOXIDE 27.4 MMOL/L (24-32); TOTAL PROTEIN 7.5 G/DL (6.4-8.2); eGFR 81 ML/MIN
--- NOTE | 2021-09-15 17:32 | NUR ---
GIVEN URINAL TO ENCOURAGE URINE SAMPLE COLLECTION
[2021-09-15] MEDS ORDERED: morphine 4 MG/ML inj SYRINge IV ONE ×2 (18:25→19:05)
[2021-09-15] MEDS ORDERED: iohexol 350MG/ML 100ml bottle IV ONE (18:38)
[2021-09-15] MEDS ORDERED: famotidine/PF 10 mg/ml inj IV ONE (18:40)
--- NOTE | 2021-09-15 19:20 | NUR ---
PT MEDICATED FOR PAIN. PT APPEARS UNCOMFORTABLE
[2021-09-15] MEDS ORDERED: ondansetron/PF 4mg/2ml inj IV ONE (19:30)
--- NOTE | 2021-09-15 19:42 | NUR ---
PT IN CT
--- NOTE | 2021-09-15 20:30 | NUR ---
PT REPORTS FEELING BETTER. HE IS SITTING UP CALMLY AND USING HIS CELLPHONE.
[2021-09-15 21:20] LABS: CLARITY,URINE CLEAR (Clear); COLOR,URINE YELLOW (Yellow); GLUCOSE, URINE 100 mg/dl (Neg); KETONES,URINE NEGATIVE (Neg); LEUKOCYTE ESTERASE ,URINE NEGATIVE (Neg); NITRITES, URINE NEGATIVE (Neg); OCCULT BLOOD,URINE NEGATIVE (Neg); PH,URINE 6.5 (4.8-8.0); PROTEIN,URINE NEGATIVE (Neg); UROBILINOGEN,URINE 0.2 E.U/dL (0.2-1.0)
[2021-09-15 21:21] VITALS: BP 171/86
[2021-09-15 21:25] LABS: UA COLLECTION TYPE URINAL
== END 2021-09-15 21:25 | disposition home or self-care (01) ==
LOC: ER 13:29
DX: R10.13 Epigastric pain (principal); J44.9 Chronic obstructive pulmonary disease, unspecified; Z86.73 Personal history of transient ischemic attack (TIA), and cerebral infarction without residual deficits; Z87.01 Personal history of pneumonia (recurrent); Z90.89 Acquired absence of other organs; Z90.49 Acquired absence of other specified parts of digestive tract; Z56.0 Unemployment, unspecified; Z88.8 Allergy status to other drugs, medicaments and biological substances; Z79.82 Long term (current) use of aspirin
CPT/HCPCS: 36415; 71275; 74177; 80053; 81003; 83690; 84484; 85025; 93005; 96374; 96375; 99285; J2270; J2405; J3490; Q9967

== ENCOUNTER 2021-11-14 03:42 | Emergency (ER) | payer MEDICARE ==
[~2021-11-14] VITALS: Ht 170.2 cm; Wt 59.1 kg
[~2021-11-14 03:42] MED LIST changes: -HYDR-3965 PO
[2021-11-14 05:02] LABS: CLARITY,URINE CLEAR (Clear); COLOR,URINE YELLOW (Yellow); GLUCOSE, URINE 100 mg/dl (Neg); KETONES,URINE NEGATIVE (Neg); LEUKOCYTE ESTERASE ,URINE NEGATIVE (Neg); NITRITES, URINE NEGATIVE (Neg); OCCULT BLOOD,URINE NEGATIVE (Neg); PH,URINE 5.5 (4.8-8.0); PROTEIN,URINE NEGATIVE (Neg); UROBILINOGEN,URINE 0.2 E.U/dL (0.2-1.0)
[2021-11-14 05:03] LABS: UA COLLECTION TYPE CLN CATCH MIDSTREAM
[2021-11-14 05:58] LABS: BASOPHILS # (AUTO) 0.1 X10'3 (0-0.2); BASOPHILS % (AUTO) 0.9 % (0-1); EOSINOPHILS # (AUTO) 0.5 X10'3 (0-0.9); EOSINOPHILS % (AUTO) 4.9 % (0-6); HEMATOCRIT 38.9 % (42.0-52.0); LYMPHOCYTES % (AUTO) 18.4 % (21-51); MEAN CORPUSCULAR HEMOGLOBIN 30.5 PG (27.0-31.0); MEAN CORPUSCULAR HGB CONC 33.4 g/dL (33.0-36.5); MEAN CORPUSCULAR VOLUME 91.5 FL (78-98); MEAN PLATELET VOLUME 7.5 FL (7.4-10.4); MONOCYTES # (AUTO) 1.3 X10'3 (0-0.9); MONOCYTES % (AUTO) 12.6 % (2-12); NEUTROPHILS # (AUTO) 6.7 X10'3 (1.8-7.7); NEUTROPHILS % (AUTO) 63.2 % (42-75); PLATELET COUNT 303 X10'3 (140-440); RED BLOOD COUNT 4.26 X10'6 (4.70-6.10); RED CELL DISTRIBUTION WIDTH 14.3 % (11.5-14.5); WHITE BLOOD COUNT 10.6 X10'3 (4.5-11.0)
[2021-11-14 06:09] LABS: ALANINE AMINOTRANSFERASE 27 U/L (12-78); ALBUMIN 3.5 G/DL (3.4-5.0); ALBUMIN/GLOBULIN RATIO 0.8 (1.1-1.5); ALKALINE PHOSPHATASE 121 IU/L (46-116); ANION GAP 7 (8-16); ASPARTATE AMINO TRANSFERASE 22 U/L (10-37); BILIRUBIN,TOTAL 0.3 MG/DL (0.1-1.0); BLOOD UREA NITROGEN 18 MG/DL (7-18); BUN/CREATININE RATIO 17.1 (5.4-32.0); CALCIUM 8.8 MG/DL (8.5-10.1); CHLORIDE 105 MMOL/L (99-107); CREATININE 1.05 MG/DL (0.60-1.10); GLUCOSE 120 MG/DL (70-104); LIPASE 70 U/L (73-393); POTASSIUM 4.1 MMOL/L (3.5-5.1); SODIUM 139 MMOL/L (135-145); TOTAL CARBON DIOXIDE 26.7 MMOL/L (24-32); TOTAL PROTEIN 7.9 G/DL (6.4-8.2); eGFR 70 ML/MIN
[2021-11-14] MEDS ORDERED: acetaminophen 325mg tablet PO ONE (08:45)
[2021-11-14] MEDS ORDERED: iohexol 350MG/ML 100ml bottle IV ONE (10:07)
[2021-11-14] MEDS ORDERED: amox tr/potassium clavulanate 875/125mg TAB PO STA (12:09)
[2021-11-14] MEDS ORDERED: AMOX-580 PO (12:15)
[2021-11-14 12:37] VITALS: BP 127/67
== END 2021-11-14 12:39 | disposition home or self-care (01) ==
LOC: ER 03:43
DX: K57.92 Diverticulitis of intestine, part unspecified, without perforation or abscess without bleeding (principal); K59.00 Constipation, unspecified; J44.9 Chronic obstructive pulmonary disease, unspecified; Z90.49 Acquired absence of other specified parts of digestive tract; Z59.00 Homelessness unspecified; Z88.5 Allergy status to narcotic agent; Z79.899 Other long term (current) drug therapy
CPT/HCPCS: 36415; 74177; 80053; 81003; 83690; 85025; 99285; J3490; Q9967

== ENCOUNTER 2022-12-23 16:04 | Emergency (ER) | payer MEDICARE ==
[~2022-12-23] VITALS: Ht 170.2 cm; Wt 65.0 kg
[2022-12-23 16:14] VITALS: TEMP 97
[2022-12-23 16:33] LABS: BASOPHILS # (AUTO) 0.1 X10'3 (0-0.2); BASOPHILS % (AUTO) 1.1 % (0-1); EOSINOPHILS # (AUTO) 0.4 X10'3 (0-0.9); EOSINOPHILS % (AUTO) 6.4 % (0-6); HEMATOCRIT 43.3 % (42.0-52.0); HEMOGLOBIN 14.1 g/dl (14.0-17.9); LYMPHOCYTES # (AUTO) 1.8 X10'3 (1.1-4.8); LYMPHOCYTES % (AUTO) 27.5 % (21-51); MEAN CORPUSCULAR HEMOGLOBIN 30.4 PG (27.0-31.0); MEAN CORPUSCULAR HGB CONC 32.6 g/dL (33.0-36.5); MEAN PLATELET VOLUME 7.1 FL (7.4-10.4); MONOCYTES # (AUTO) 0.9 X10'3 (0-0.9); MONOCYTES % (AUTO) 13.8 % (2-12); NEUTROPHILS # (AUTO) 3.4 X10'3 (1.8-7.7); NEUTROPHILS % (AUTO) 51.2 % (42-75); PLATELET COUNT 298 X10'3 (140-440); RED BLOOD COUNT 4.66 X10'6 (4.70-6.10); RED CELL DISTRIBUTION WIDTH 13.9 % (11.5-14.5); WHITE BLOOD COUNT 6.6 X10'3 (4.5-11.0)
[2022-12-23 16:45] LABS: APTT 25 SECONDS (22-32); PROTHROMBIN TIME 9.8 SECONDS (9.0-12.0)
[2022-12-23 16:48] LABS: ALANINE AMINOTRANSFERASE 30 U/L (12-78); ALBUMIN 3.6 G/DL (3.4-5.0); ALBUMIN/GLOBULIN RATIO 0.9 (1.1-1.5); ALKALINE PHOSPHATASE 112 IU/L (46-116); ANION GAP 7 (8-16); ASPARTATE AMINO TRANSFERASE 22 U/L (10-37); BILIRUBIN,TOTAL 0.4 MG/DL (0.1-1.0); BLOOD UREA NITROGEN 17 MG/DL (7-18); BUN/CREATININE RATIO 16.8 (10.0-20.0); CALCIUM 9.4 MG/DL (8.5-10.1); CHLORIDE 105 MMOL/L (99-107); CREATININE 1.01 MG/DL (0.60-1.10); GLUCOSE 102 MG/DL (70-104); POTASSIUM 4.1 MMOL/L (3.5-5.1); SODIUM 140 MMOL/L (135-145); TOTAL CARBON DIOXIDE 28.3 MMOL/L (24-32); TOTAL PROTEIN 7.5 G/DL (6.4-8.2); eCRCL 63 ML/MIN; eGFR 73 ML/MIN
[2022-12-23 16:53] LABS: INR 0.9 INR
[2022-12-23 16:56] LABS: PRO BRAIN NATRIURETIC PEPTIDE 229 PG/ML (0-125)
--- NOTE | 2022-12-23 17:56 | NUR ---
DR. SOL AT BEDSIDE. LAB AT BEDSIDE, 20G IV STARTED LEFT FOREARM
[2022-12-23] MEDS ORDERED: TETRAcaine 0.5% ophthalmic drops 15ml EACHEYE ONE (18:05)
--- NOTE | 2022-12-23 18:31 | NUR ---
report to marleny mccray
[2022-12-23] MEDS ORDERED: iohexol 350MG/ML 100ml bottle IV ONE (18:43)
[2022-12-23 21:33] VITALS: BP 144/84; PULSE 91; RESP 16; O2SAT 97
== END 2022-12-23 21:36 | disposition home or self-care (01) ==
LOC: ER 16:05
DX: H53.8 Other visual disturbances (principal); R51.9 Headache, unspecified; J44.9 Chronic obstructive pulmonary disease, unspecified; Z88.5 Allergy status to narcotic agent; Z79.82 Long term (current) use of aspirin; Z98.890 Other specified postprocedural states; Z90.49 Acquired absence of other specified parts of digestive tract
CPT/HCPCS: 36415; 70450; 70496; 70498; 71045; 80053; 83880; 84484; 85025; 85610; 85651; 85730; 86140; 93005; 99285; J3490; Q9967

== ENCOUNTER 2023-01-15 01:51 | Emergency (ER) | payer MEDICARE | END 2023-01-15 03:27 | disposition left against medical advice (07) | LOC: ER 01:52 | DX: R10.30 Lower abdominal pain, unspecified (principal); Z53.21 Procedure and treatment not carried out due to patient leaving prior to being seen by health care provider ==

== ENCOUNTER 2023-09-30 17:26 | Emergency (ER) | payer MEDICARE ==
[~2023-09-30] VITALS: Ht 170.2 cm; Wt 59.1 kg
[2023-09-30 17:31] VITALS: TEMP 97.8
[2023-09-30 17:57] LABS: BASOPHILS # (AUTO) 0.1 X10'3 (0-0.2); EOSINOPHILS # (AUTO) 0.4 X10'3 (0-0.9); EOSINOPHILS % (AUTO) 5.3 % (0-6); HEMATOCRIT 39.7 % (42.0-52.0); HEMOGLOBIN 13.1 g/dl (14.0-17.9); LYMPHOCYTES # (AUTO) 2.2 X10'3 (1.1-4.8); LYMPHOCYTES % (AUTO) 29.9 % (21-51); MEAN CORPUSCULAR HEMOGLOBIN 29.4 PG (27.0-31.0); MEAN CORPUSCULAR VOLUME 89.1 FL (78-98); MEAN PLATELET VOLUME 7.2 FL (7.4-10.4); MONOCYTES # (AUTO) 0.9 X10'3 (0-0.9); MONOCYTES % (AUTO) 12.3 % (2-12); NEUTROPHILS # (AUTO) 3.9 X10'3 (1.8-7.7); NEUTROPHILS % (AUTO) 51.5 % (42-75); PLATELET COUNT 285 X10'3 (140-440); RED BLOOD COUNT 4.45 X10'6 (4.70-6.10); RED CELL DISTRIBUTION WIDTH 14.6 % (11.5-14.5); WHITE BLOOD COUNT 7.5 X10'3 (4.5-11.0)
[2023-09-30 18:11] LABS: ALANINE AMINOTRANSFERASE 27 U/L (12-78); ALBUMIN 3.5 G/DL (3.4-5.0); ALBUMIN/GLOBULIN RATIO 0.9 (1.1-1.5); ALKALINE PHOSPHATASE 106 IU/L (46-116); ANION GAP 7 (8-16); ASPARTATE AMINO TRANSFERASE 17 U/L (10-37); BILIRUBIN,TOTAL 0.3 MG/DL (0.1-1.0); BLOOD UREA NITROGEN 21 MG/DL (7-18); CALCIUM 8.9 MG/DL (8.5-10.1); CHLORIDE 105 MMOL/L (99-107); CREATININE 1.31 MG/DL (0.60-1.10); GLUCOSE 118 MG/DL (70-104); POTASSIUM 4.1 MMOL/L (3.5-5.1); SODIUM 141 MMOL/L (135-145); TOTAL CARBON DIOXIDE 29.2 MMOL/L (24-32); TOTAL PROTEIN 7.5 G/DL (6.4-8.2); eCRCL 43 ML/MIN; eGFR 54 ML/MIN
[2023-09-30 18:18] LABS: PRO BRAIN NATRIURETIC PEPTIDE 237 PG/ML (0-125)
[2023-09-30] MEDS ORDERED: iohexol 350MG/ML 100ml bottle IV ONE (19:22)
[2023-09-30] MEDS: albuterol 2.5 MG/3 ML nebule NEB ONE (19:37)
[2023-09-30 19:40] VITALS: PULSE 87; RESP 12; O2SAT 96
[2023-09-30 19:43] VITALS: PULSE 83; RESP 12; O2SAT 93
[2023-09-30 22:20] VITALS: BP 128/88; PULSE 88; RESP 14; O2SAT 98
== END 2023-09-30 22:31 | disposition home or self-care (01) ==
LOC: ER 17:27
DX: R07.9 Chest pain, unspecified (principal); R05.9 Cough, unspecified; J44.9 Chronic obstructive pulmonary disease, unspecified; Z88.8 Allergy status to other drugs, medicaments and biological substances; Z79.82 Long term (current) use of aspirin; Z86.73 Personal history of transient ischemic attack (TIA), and cerebral infarction without residual deficits; Z90.49 Acquired absence of other specified parts of digestive tract; Z56.0 Unemployment, unspecified
CPT/HCPCS: 36415; 71045; 71275; 80053; 83880; 84484; 85025; 93005; 94640; 99285; Q9967; Z7610; 94760

== ENCOUNTER 2023-11-04 10:57 | Emergency (ER) | payer MEDICARE | END 2023-11-04 12:10 | disposition left against medical advice (07) | LOC: ER 10:58 | DX: R20.0 Anesthesia of skin (principal); Z53.21 Procedure and treatment not carried out due to patient leaving prior to being seen by health care provider; Z88.8 Allergy status to other drugs, medicaments and biological substances ==

== ENCOUNTER 2024-05-19 02:00 | Emergency (ER) | payer MEDICARE ==
[~2024-05-19] VITALS: Ht 170.2 cm; Wt 63.6 kg
[2024-05-19 02:09] VITALS: TEMP 99.5
[2024-05-19] MEDS: magnesium sulf-water 2g/50mL 50 ML IV ONE (02:27)
[2024-05-19] MEDS: methylPREDNISolone sod succ 125mg/2ml vial IV ONE (02:27)
[2024-05-19 02:40] LABS: BASOPHILS # (AUTO) 0.1 X10'3 (0-0.2); BASOPHILS % (AUTO) 0.5 % (0-1); EOSINOPHILS # (AUTO) 0.2 X10'3 (0-0.9); EOSINOPHILS % (AUTO) 1.1 % (0-6); HEMATOCRIT 44.7 % (42.0-52.0); HEMOGLOBIN 14.7 g/dl (14.0-17.9); LYMPHOCYTES # (AUTO) 2.5 X10'3 (1.1-4.8); LYMPHOCYTES % (AUTO) 16.9 % (21-51); MEAN CORPUSCULAR HEMOGLOBIN 30.9 PG (27.0-31.0); MEAN CORPUSCULAR HGB CONC 32.9 g/dL (33.0-36.5); MEAN CORPUSCULAR VOLUME 94.1 FL (78-98); MEAN PLATELET VOLUME 7.3 FL (7.4-10.4); MONOCYTES # (AUTO) 1.4 X10'3 (0-0.9); MONOCYTES % (AUTO) 9.8 % (2-12); NEUTROPHILS # (AUTO) 10.4 X10'3 (1.8-7.7); NEUTROPHILS % (AUTO) 71.7 % (42-75); PLATELET COUNT 301 X10'3 (140-440); RED BLOOD COUNT 4.75 X10'6 (4.70-6.10); RED CELL DISTRIBUTION WIDTH 13.4 % (11.5-14.5); WHITE BLOOD COUNT 14.5 X10'3 (4.5-11.0)
[2024-05-19] MEDS: albuterol 2.5 MG/3 ML nebule CONTNEB PRN (02:48)
[2024-05-19 02:50] LABS: D-DIMER 0.93 MG/L FEU (0-0.50)
[2024-05-19 02:53] VITALS: PULSE 106; RESP 20; O2SAT 96
[2024-05-19 02:56] LABS: ALANINE AMINOTRANSFERASE 28 U/L (12-78); ALBUMIN 3.4 G/DL (3.4-5.0); ALBUMIN/GLOBULIN RATIO 0.8 (1.1-1.5); ALKALINE PHOSPHATASE 142 IU/L (46-116); ANION GAP 8 (8-16); ASPARTATE AMINO TRANSFERASE 26 U/L (10-37); BILIRUBIN,TOTAL 0.4 MG/DL (0.1-1.0); BLOOD UREA NITROGEN 17 MG/DL (7-18); BUN/CREATININE RATIO 13.4 (10.0-20.0); CALCIUM 8.9 MG/DL (8.5-10.1); CHLORIDE 103 MMOL/L (99-107); CREATININE 1.27 MG/DL (0.60-1.10); GLUCOSE 237 MG/DL (70-104); SODIUM 137 MMOL/L (135-145); TOTAL CARBON DIOXIDE 25.7 MMOL/L (24-32); TOTAL PROTEIN 7.7 G/DL (6.4-8.2); eCRCL 48 ML/MIN; eGFR 56 ML/MIN
[2024-05-19 03:04] LABS: PRO BRAIN NATRIURETIC PEPTIDE 234 PG/ML (0-125)
[2024-05-19] MEDS ORDERED: iohexol 350MG/ML 100ml bottle IV ONE (03:21)
[2024-05-19 03:38] VITALS: PULSE 70; RESP 20; O2SAT 98
[2024-05-19] MEDS ORDERED: ALBU8HFA INH (04:28)
[2024-05-19] MEDS ORDERED: METH4TAB81 PO (04:28)
[2024-05-19 04:48] VITALS: BP 126/67; PULSE 113; RESP 18; O2SAT 93
== END 2024-05-19 04:54 | disposition home or self-care (01) ==
LOC: ER 02:01
DX: J44.1 Chronic obstructive pulmonary disease with (acute) exacerbation (principal); R07.9 Chest pain, unspecified; Z86.73 Personal history of transient ischemic attack (TIA), and cerebral infarction without residual deficits; Z20.822 Contact with and (suspected) exposure to COVID-19; Z88.8 Allergy status to other drugs, medicaments and biological substances; Z90.49 Acquired absence of other specified parts of digestive tract; Z79.82 Long term (current) use of aspirin
CPT/HCPCS: 36415; 71045; 71275; 80053; 82948; 83605; 83735; 83880; 84484; 85025; 85379; 87040; 87502; 87503; 87811; 93005; 94640; 96365; 96375; 99285; J2919; Q9967; 94644; 94760

== ENCOUNTER 2024-07-22 22:56 | Emergency (ER) | payer MEDICARE ==
[~2024-07-22] VITALS: Ht 170.2 cm; Wt 59.1 kg
[~2024-07-22 22:56] MED LIST changes: +ALBU8HFA INH; +BUDE10.2 INH; +GLIP5TAB23 PO; +THIA100T70 PO
[2024-07-23] VITALS (7 sets, daily range): BP systolic 127; BP diastolic 83; PULSE 91–111; RESP 12–25; TEMP 98; O2SAT 92–100
--- NOTE | 2024-07-23 02:18 | Physician Documentation ---
History of Present Illness ~ Chief Complaint: Shortness of Breath Stated Complaint: SOB Time Seen by MD: 01:54 Primary Medical Doctor: NONE Mode of Arrival: EMS HPI A 73-year-old male history of COPD, dm 2 presenting for shortness of breath. 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*, CVA/TIA/Stroke, Headache, COPD, Pneumonia Past Surgical History: appendectomy, cholecystectomy Patient History: FH: stroke MOTHER Alcohol Use: None Drug Use: none Lives with: Family Lives In: Home Occupation: unemployed Review of Systems Constitutional: Denies: fever Respiratory: Reports: cough, orthopnea, shortness of breath, SOB with exertion Cardiovascular: Denies: chest pain Gastrointestinal: Denies: abdominal pain Physical Exam Vital Signs: Temperature: 98.0, Source: Oral, Heart Rate: 100, Respiratory Rate: 14, BP: 137/85, Pulse Oximetry: 94, Weight: 59.090 Physical Exam Chronically ill-appearing Tripoding Productive cough Diffuse expiratory wheezes Abdomen soft nontender Lower extremity no edema Progress Results/Orders Results/Orders Orders - JASON ADAMES MD Chest,Single View (07/23/24 02:22) Hs Troponin I W Calculations (07/23/24 04:22) * Rt Notification Q1H (07/23/24 05:58) Completed Orders - JASON ADAMES MD Electrocardiogram (07/23/24 02:22) Cbc/Diff (07/23/24 02:22) Chest,Single View (07/23/24 02:22) Methylprednisolone Sod Succ (Solumedrol (07/23/24 02:25) BMP (07/23/24 02:22) Hs Troponin I W Calculations (07/23/24 02:22) Ipratropium/Albuterol Nebule (Ipratrop/A (07/23/24 02:25) Ipratropium/Albuterol Nebule (Ipratrop/A (07/23/24 02:46) Albuterol 2.5mg/3ml Nebule (Proventil 2. (07/23/24 06:00) Medications Received in ER Medications (Trade) Dose Ordered Sig/Treence Route PRN Reason Start Time Stop Time Status Last Admin Dose Admin (SoluMEDROL 125mg inj) 125 mg ONCE ONCE IV 07/23/24 02:25 07/23/24 02:26 DC 07/23/24 03:22 125 MG (ipratrop/ albuterol 0.5-3(2.5) MG/3ml nebule) 9 ml ONCE ONCE NEB 07/23/24 02:25 07/23/24 02:28 DC 07/23/24 02:25 9 ML Vital Signs 07/22/24 07/22/24 07/22/24 07/23/24 23:09 23:21 23:31 01:19 Temp 98.0 Pulse 102 100 Resp 20 13 14 B/P (MAP) 151/83 137/85 (102) Pulse Ox 98 98 94 O2 Delivery Room Air* O2 Flow Rate 0 FiO2 21 07/23/24 07/23/24 07/23/24 07/23/24 02:20 02:52 02:56 03:41 Pulse 112 111 107 106 Resp 18 25 21 B/P (MAP) 149/84 (105) Pulse Ox 95 97 98 92 07/23/24 07/23/24 07/23/24 03:50 05:23 06:29 Temp 98.0 Pulse 104 100 94 Resp 20 20 17 B/P (MAP) 118/69 (85) 100/55 (70) 101/67 (78) Pulse Ox 96 92 95 O2 Flow Rate 0 FiO2 21 Laboratory Tests Test 07/23/24 02:43 White Blood Count 9.3 Red Blood Count 4.61 L Hemoglobin 14.1 Hematocrit 42.1 Mean Corpuscular Volume 91.3 Mean Corpuscular Hemoglobin 30.5 Mean Corpuscular Hemoglobin Concent 33.4 Red Cell Distribution Width 13.7 Platelet Count 372 Mean Platelet Volume 7.1 L Neutrophils (%) (Auto) 49.8 Lymphocytes (%) (Auto) 28.3 Monocytes (%) (Auto) 13.3 H Eosinophils (%) (Auto) 7.3 H Basophils (%) (Auto) 1.3 H Neutrophils # (Auto) 4.7 Lymphocytes # (Auto) 2.6 Monocytes # (Auto) 1.2 H Eosinophils # (Auto) 0.7 Basophils # (Auto) 0.1 CBC Comment Sodium Level 143 Potassium Level 4.1 Chloride Level 106 Carbon Dioxide Level 27.5 Anion Gap 10 Blood Urea Nitrogen 18 Creatinine 1.08 Estimated GFR/1.73 m2 67 BUN/Creatinine Ratio 16.7 Glucose Level 132 H Calcium Level 8.9 Troponin I High Sensitivity 29 Albumin 3.5 Chemistry Comments EKG/XRAY/CT/US/VASC/MRI EKG : Additional Comment EKG independently interpreted by myself time 2:35 a.m. indication dyspnea sinus tachycardia rate 1 await normal axis normal intervals right bundle branch block no ST abnormalities Medical Decision Making Additional info obtained from: old records Findings Reviewed discharge summary May 2024 COPD exacerbation, dm 2 CTA chest negative for pulmonary embolism Additional Infomation COPD CHF acute coronary syndrome Departure Disposition: 09 ADMITTED INPATIENT Admitted to Inpatient Unit: to hospitalist Impression: Primary Impression: Acute exacerbation of chronic obstructive airways disease Referrals: NO PRIMARY CARE PROVIDER (PCP) Signature Scribe Signature: na Attestation: JASON Thomas MD July 23, 2024 02:18
[2024-07-23] MEDS: ipratropium/albuterol 3ml nebule NEB ONE (02:25)
--- NOTE | 2024-07-23 02:37 | ELECTROCARDIOGRAPH REPORT ---
[facility] Test Date: 2024-07-23 Test Time: 02:35:35 Pat Name: STANLEY SMALLS Department: [facility]- Patient ID: [id number] Room: Gender: M Hydroblaster: : 1950 Requested By: JASON ADAMES Order Number: [id number] Reading MD: Measurements Intervals [place] Rate: 108 P: 84 [place]: 126 QRS: 86 QRSD: 130 T: 74 QT: 357 QTc: 479 Interpretive Statements Sinus tachycardia Atrial premature complexes Right bundle branch block Minimal ST elevation, inferior leads Please click the below link to view image of tracing.
[2024-07-23 02:58] LABS: BASOPHILS # (AUTO) 0.1 X10'3 (0-0.2); BASOPHILS % (AUTO) 1.3 % (0-1); EOSINOPHILS # (AUTO) 0.7 X10'3 (0-0.9); EOSINOPHILS % (AUTO) 7.3 % (0-6); HEMATOCRIT 42.1 % (42.0-52.0); HEMOGLOBIN 14.1 g/dl (14.0-17.9); LYMPHOCYTES # (AUTO) 2.6 X10'3 (1.1-4.8); LYMPHOCYTES % (AUTO) 28.3 % (21-51); MEAN CORPUSCULAR HEMOGLOBIN 30.5 PG (27.0-31.0); MEAN CORPUSCULAR HGB CONC 33.4 g/dL (33.0-36.5); MEAN CORPUSCULAR VOLUME 91.3 FL (78-98); MEAN PLATELET VOLUME 7.1 FL (7.4-10.4); MONOCYTES # (AUTO) 1.2 X10'3 (0-0.9); MONOCYTES % (AUTO) 13.3 % (2-12); NEUTROPHILS # (AUTO) 4.7 X10'3 (1.8-7.7); NEUTROPHILS % (AUTO) 49.8 % (42-75); PLATELET COUNT 372 X10'3 (140-440); RED BLOOD COUNT 4.61 X10'6 (4.70-6.10); RED CELL DISTRIBUTION WIDTH 13.7 % (11.5-14.5); WHITE BLOOD COUNT 9.3 X10'3 (4.5-11.0)
[2024-07-23 03:09] LABS: ALBUMIN 3.5 G/DL (3.4-5.0); ANION GAP 10 (8-16); BLOOD UREA NITROGEN 18 MG/DL (7-18); BUN/CREATININE RATIO 16.7 (10.0-20.0); CALCIUM 8.9 MG/DL (8.5-10.1); CHLORIDE 106 MMOL/L (99-107); CREATININE 1.08 MG/DL (0.60-1.10); GLUCOSE 132 MG/DL (70-104); POTASSIUM 4.1 MMOL/L (3.5-5.1); SODIUM 143 MMOL/L (135-145); TOTAL CARBON DIOXIDE 27.5 MMOL/L (24-32); eCRCL 52 ML/MIN; eGFR 67 ML/MIN
--- NOTE | 2024-07-23 03:14 | RADIOLOGY REPORT ---
CHEST RADIOGRAPH Indication: SOB Technique: Single frontal view of the chest was obtained COMPARISON: DI CHEST,SINGLE VIEW on DOS: 06/05/24, DI CHEST,SINGLE VIEW on DOS: 05/29/24, DI CHEST,SING LE VIEW on DOS: 05/28/24, DI CHEST,SINGLE VIEW on DOS: 05/19/24, DI CHEST,SINGLE VIEW on DOS: 09/30/23 FINDINGS: Lines and Tubes: None Lungs: Clear Pleura: No effusion. No pneumothorax. Cardiomediastinal contours: Unremarkable Bones: Unremarkable IMPRESSION: 1. No acute disease.
[2024-07-23] MEDS: methylPREDNISolone sod succ 125mg/2ml vial IV ONE (03:22)
[2024-07-23] MEDS: ipratropium/albuterol 3ml nebule ONE (03:45)
[2024-07-23] MEDS: albuterol 2.5 MG/3 ML nebule CONTNEB ONE (06:00)
[2024-07-23] MEDS: albuterol 2.5 MG/3 ML nebule NEB ONE (08:12)
[2024-07-23] MEDS: LIDOcaine 40mg/ml topical solution IH ONE (08:29)
[2024-07-23] MEDS ORDERED: AZIT250T3 PO (09:19)
[2024-07-23] MEDS ORDERED: PRED20TA PO (09:19)
[2024-07-23] MEDS ORDERED: ALB0.5UD NEB (09:19)
== END 2024-07-23 09:29 | disposition home or self-care (01) ==
LOC: ER 22:56
DX: J44.1 Chronic obstructive pulmonary disease with (acute) exacerbation (principal); E11.9 Type 2 diabetes mellitus without complications; Z86.73 Personal history of transient ischemic attack (TIA), and cerebral infarction without residual deficits; Z90.49 Acquired absence of other specified parts of digestive tract; Z79.82 Long term (current) use of aspirin
CPT/HCPCS: 36415; 71045; 80048; 84484; 85025; 93005; 94640; 96374; 99285; J2919; 94760

== ENCOUNTER 2024-08-04 00:56 | Emergency (ER) | payer MEDICARE ==
[~2024-08-04] VITALS: Ht 170.2 cm; Wt 63.6 kg
[2024-08-04 01:03] VITALS: TEMP 98.5
--- NOTE | 2024-08-04 02:36 | Physician Documentation ---
History of Present Illness ~ Chief Complaint: Shortness of Breath Stated Complaint: DIFFICULTY BREATHING Time Seen by MD: 02:34 Primary Medical Doctor: MELVIN HPI Patient presents to the emergency room with chief complaint of shortness of breath. He is brought in by ambulance. History of COPD. He states he is not smoking. He states that he has to come in every time he runs out of his breathing medicines and he is asking for breathing medicine to go home with. When asked if he has a doctor he states that he does not and that [facility] is not taking any new patients. Patient received a DuoNeb in route in his feeling much better sleeping and easily arousable but continues to have mild wheezing Medication Reconciliation Allergies: Coded Allergies: No Known Allergies (Unverified , 07/22/24) Scheduled Aspirin (Aspirin EC), 1 TAB PO DAILY, (Reported) Budesonide/Formoterol Fumarate (Symbicort 160-4.5 Mcg Inhaler), 2 PUFFS INH Q12H Glipizide (Glipizide), 1 TAB PO Q12H Thiamine Mononitrate (Vitamin B-1), 1 TAB PO DAILY Scheduled PRN albuterol inhaler (Pro-Air Inhaler), 2 PUFFS INH Q4HPRN PRN for wheezing Discontinued Medications Albuterol Sulfate Nebs* (Proventil Nebs*), 1 VIAL NEB Q4H Discontinued Reason: Auto Discontinued Azithromycin (Zithromax), 1 TAB PO UD Discontinued Reason: Auto Discontinued Prednisone* (Prednisone*), 1 TAB PO Q12H Discontinued Reason: Auto Discontinued Past Medical History 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 Eyes: Conjunctival normal. EOMI. PERRL. ENT: Mucous membranes moist. Neck: Supple, trachea is midline. Chest: Mild expiratory wheezing to auscultation bilaterally without rales, rhonchi, . There is no accessory muscle use or retractions. Cardiac: RRR without murmurs, gallops, or rubs. Extremities: Normal strength. Normal range of motion. No deformities or edema. Progress Results/Orders Results/Orders Orders - ANTHONY ALEXANDER MD Electrocardiogram (08/04/24 ) Chest,Single View (08/04/24 02:58) Cont Nebulizer Treatment (08/04/24 02:42) Albuterol 2.5mg/3ml Nebule (Proventil 2. (08/04/24 02:45) Ct Head (08/04/24 03:35) Urinalysis, Cult If Indicated (08/04/24 03:35) Drug Screen, Urine (08/04/24 03:35) Ethanol (08/04/24 03:35) Completed Orders - ANTHONY ALEXANDER MD Chest,Single View (08/04/24 02:58) Methylprednisolone Sod Succ (Solumedrol (08/04/24 02:45) Triamcinolone Acet 40mg/Ml Inj (Kenalog- (08/04/24 02:45) Medications Received in ER Medications (Trade) Dose Ordered Sig/Terence Route PRN Reason Start Time Stop Time Status Last Admin Dose Admin (Proventil 2.5 MG/3ML nebule) 5 mg Q1H PRN CONTNEB SOB or wheezing 08/04/24 02:45 08/04/24 02:53 5 MG (SoluMEDROL 125mg inj) 125 mg ONCE ONCE IV 08/04/24 02:45 08/04/24 02:46 DC 08/04/24 03:05 125 MG (Kenalog-40 inj) 40 mg ONCE ONCE IM 08/04/24 02:45 08/04/24 02:48 DC 08/04/24 03:06 40 MG Vital Signs 08/04/24 08/04/24 08/04/24 08/04/24 01:03 02:33 02:57 02:57 Temp 98.5 Pulse 117 106 108 Resp 22 19 20 B/P (MAP) 134/72 113/72 (86) Pulse Ox 93 92 97 O2 Flow Rate 0 0 8.0 EKG/XRAY/CT/US/VASC/MRI Chest X-Ray : Additional Comments One view chest x-ray interpreted by myself is negative for effusions infiltrates and normal cardiac silhouette Medical Decision Making Findings Patient is feeling much better with wheezing resolved. Had discussion with him that he needs to get established with his primary care. I will provide him his inhalers with some refills. ER precautions discussed. Given patient's course in the emergency room in reassuring chest x-ray do not feel patient requires emergent labs Departure Disposition: HOME / SELF CARE / HOMELESS Impression: Primary Impression: Chronic obstructive pulmonary disease Condition: Improved Discharge Instructions: COPD and Physical Activity Additional Instructions: Continue to follow up with primary care provider Referrals: NO PRIMARY CARE PROVIDER (PCP) Prescriptions Albuterol Sulfate (Ventolin Hfa) 90 Mcg Hfa.aer.ad 2 PUFFS INH Q4HPRN PRN for wheezing for 30 Days, #18 GM 2 Refills Prov: ANTHONY ALEXANDER MD 08/04/24 Budesonide/Formoterol Fumarate (Symbicort 160-4.5 Mcg Inhaler) 160 Mcg-4.5 Mcg/Actuation Hfa.aer.ad 2 PUFFS INH Q12H for 30 Days, #10.2 GM 2 Refills Prov: ANTHONY ALEXANDER MD 08/04/24 Education Educated: Patient Educated regarding: diagnosis, treatment, need for follow up Signature Scribe Signature: No scribe Attestation: The note accurately reflects work and decisions made by me.Anthony Alexander MD 08/04/24 03:41 ANTHONY ALEXANDER MD August 04, 2024 02:36
[2024-08-04] MEDS: albuterol 2.5 MG/3 ML nebule CONTNEB PRN (02:53)
[2024-08-04 02:57] VITALS: PULSE 108; RESP 20; O2SAT 97
[2024-08-04] MEDS: methylPREDNISolone sod succ 125mg/2ml vial IV ONE (03:05)
[2024-08-04] MEDS: triamcinolone acetonide 40mg/ml inj IM ONE (03:06)
[2024-08-04] MEDS ORDERED: ALBU18HF2 INH (03:41)
[2024-08-04] MEDS ORDERED: BUDE10.2 INH (03:41)
[2024-08-04 03:45] VITALS: BP 106/52; PULSE 107; RESP 17; O2SAT 98
--- NOTE | 2024-08-04 04:48 | RADIOLOGY REPORT ---
CHEST RADIOGRAPH Indication: SOB Technique: Single frontal view of the chest was obtained COMPARISON: DI CHEST,SINGLE VIEW on DOS: 07/23/24, DI CHEST,SINGLE VIEW on DOS: 06/05/24, DI CHEST,SING LE VIEW on DOS: 05/29/24, DI CHEST,SINGLE VIEW on DOS: 05/28/24, DI CHEST,SINGLE VIEW on DOS: 05/19/24 FINDINGS: Lines and Tubes: None Lungs: Clear Pleura: No effusion. No pneumothorax. Cardiomediastinal contours: Unremarkable Bones: Unremarkable IMPRESSION: No acute disease.
--- NOTE | 2024-08-04 05:21 | ELECTROCARDIOGRAPH REPORT ---
[facility] Test Date: 2024-08-04 Test Time: 01:52:18 Pat Name: STANLEY SMALLS Department: [facility]- Patient ID: [id number] Room: Gender: M Oracle Software Engineer: : 1950 Requested By: ANTHONY KELLER Order Number: [id number] Reading MD: Dr. Cole Mcmahon Measurements Intervals [place] Rate: 113 P: 23 [place]: 131 QRS: 177 QRSD: 126 T: 7 QT: 327 QTc: 449 Interpretive Statements Sinus tachycardia Atrial premature complexes Nonspecific intraventricular conduction delay Borderline ST elevation, lateral leads Electronically Signed On 08-05-2024 6:41:[address] Cole Mcmahon Please click the below link to view image of tracing.
== END 2024-08-04 04:05 | disposition home or self-care (01) ==
LOC: ER 00:56
DX: J44.9 Chronic obstructive pulmonary disease, unspecified (principal); Z86.73 Personal history of transient ischemic attack (TIA), and cerebral infarction without residual deficits; Z79.82 Long term (current) use of aspirin; Z90.49 Acquired absence of other specified parts of digestive tract
CPT/HCPCS: 71045; 93005; 94644; 96372; 96374; 99285; A7015; J2919; J3301; Z7610; 94640; 94760

== ENCOUNTER 2024-08-17 22:56 | Emergency (ER) | payer MEDICARE ==
[~2024-08-17] VITALS: Ht 170.2 cm; Wt 65.5 kg
[~2024-08-17 22:56] MED LIST changes: +ALBU18HF2 INH
[2024-08-17 23:30] VITALS: BP 109/64; PULSE 49; RESP 16; TEMP 97.9; O2SAT 92
== END 2024-08-18 01:38 | disposition left against medical advice (07) ==
LOC: ER 22:57
DX: R68.84 Jaw pain (principal); R06.02 Shortness of breath; Z53.21 Procedure and treatment not carried out due to patient leaving prior to being seen by health care provider

== ENCOUNTER 2024-08-28 23:00 | Emergency (ER) | payer MEDICARE ==
[~2024-08-28] VITALS: Ht 170.2 cm; Wt 63.3 kg
[~2024-08-28 23:00] MED LIST changes: -ALBU18HF2 INH; +ALBU2.5V7 NEB; -ALBU8HFA INH; -ASPI-1397 PO; -BUDE10.2 INH; +CEFD300C3 PO; -GLIP5TAB23 PO; +LACT1CAP55 PO; +NEBU-237 INH; +PRED10TA23 PO; -THIA100T70 PO; +[UNRECOGNIZED DRUG - CODE] PO
--- NOTE | 2024-08-28 23:11 | ELECTROCARDIOGRAPH REPORT ---
[facility] Test Date: 2024-08-28 Test Time: 23:05:00 Pat Name: STANLEY SMALLS Department: EMERGENCY ROOM [id number] Room: Gender: M Senior Loan Officer: PM : 1950 Requested By: SOFÍA LLANOS Order Number: [id number] Reading MD: Dr. Cole Mcmahon Measurements Intervals [place] Rate: 116 P: 78 [place]: 126 QRS: 72 QRSD: 135 T: 55 QT: 350 QTc: 487 Interpretive Statements Sinus tachycardia Right bundle branch block Probable posterior infarct, acute Baseline wander in lead(s) V1,V2 Electronically Signed On 09-05-2024 17:59:[address] Cole Mcmahon Please click the below link to view image of tracing.
--- NOTE | 2024-08-28 23:23 | Physician Documentation ---
History of Present Illness ~ Chief Complaint: Shortness of Breath Stated Complaint: SOB Time Seen by MD: 23:17 Primary Medical Doctor: NONE Source: patient, EMS, EMS notes reviewed Mode of Arrival: EMS Exam Limitations: no limitations HPI Chief Complaint: Shortness of breath Caveat: None Independent Historians: Paramedics History of Present Illness: Patient is a 73-year-old man who comes in complaining of shortness a breath that began last night at 9:00 p.m.. Patient has had a cough that has been dry for approximately two weeks. On occasion he will cough up yellow phlegm. No fever. Patient also does complaining of some chest tightness that began tonight. Patient's pulse ox was 90% on room air for the firefighters. They placed him on 3 L of oxygen by nasal cannula. Patient had been using his albuterol nebulizer at home earlier without relief. Paramedics gave an albuterol neb and his breathing improved. Paramedics weaned him off the oxygen to room air and currently has a pulse ox of 94%. Review of medical records: Patient was just discharged from this hospital on August 23 for COPD exacerbation. Review of systems: All systems were reviewed and are negative except for what is indicated in the history of present illness. Past Medical History: COPD, type 2 diabetes Past Surgical History: Noncontributory Social History: Former smoker, no alcohol use, no drug use Medications: Reviewed as documented Nursing Notes Allergies: Reviewed as documented in Nursing Notes Medication Reconciliation Allergies: Coded Allergies: No Known Allergies (Unverified , 08/20/24) Scheduled Azithromycin (Zithromax), 1 TAB PO UD Cefdinir (Cefdinir), 1 CAP PO Q12H Glyburide/Metformin HCl (Glyburid-Metformin 1.25-250 mg), 1 TAB PO Q12H L. 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 All other systems are negative Physical Exam Vital Signs: RN Vital Signs have been reviewed: Yes, Temperature: 98.8, Source: Oral, Heart Rate: 116, Respiratory Rate: 25, BP: 127/79, Pulse Oximetry: 95, Weight: 63.300 Pulse Oximetry Reflects: adequate oxygenation Physical Exam General Appearance: Moderate distress, acutely and chronically ill-appearing HEENT: Normal OP, moist oral mucosa, PERRL, EOMI Neck: supple, normal ROM, trachea midline Pulmonary: Moderate respiratory distress, tachypnea, crackles on the right posterolateral lung miller Cardiac: Tachycardic, regular rhythm, no murmur, rub or gallop, GI: nondistended, soft, nontender, normal bowel sounds, no guarding, no rebound Extremities: normal ROM, no swelling, non-tender Skin: intact, dry, warm, no rashes Neuro: AAOx3, speech is clear, no focal motor weakness Psych: normal affect, good eye contact, no apparent hallucination, normal speech Progress Results/Orders Results/Orders Orders - SOFÍA LLANOS MD Chest,Single View (08/28/24 23:09) Monitor (08/28/24 23:09) Saline Lock (08/28/24 23:09) Oxygen (08/28/24 23:09) Completed Orders - SOFÍA LLANOS MD Chest,Single View (08/28/24 23:09) Cbc/Diff (08/28/24 23:09) BMP (08/28/24 23:09) PBNP (08/28/24 23:09) Electrocardiogram (08/28/24 23:09) Hs Troponin I W Calculations (08/28/24 23:09) Hs Troponin I W Calculations (08/29/24 01:09) Hs Troponin I W Calculations (08/29/24 02:09) Vital Signs 08/28/24 08/28/24 08/28/24 08/28/24 23:02 23:09 23:10 23:11 Temp 98.2 98.8 Pulse 116 Resp 23 23 25 B/P (MAP) 129/79 127/79 (95) Pulse Ox 97 95 O2 Delivery Nasal Cannula* O2 Flow Rate 2 FiO2 28 08/29/24 08/29/24 00:16 01:24 Temp 98.8 98.8 Pulse 114 108 Resp 23 B/P (MAP) 107/55 (72) 109/56 (73) Pulse Ox 95 O2 Flow Rate 2 FiO2 28 Laboratory Tests Test 08/28/24 23:13 08/29/24 01:23 08/29/24 02:27 White Blood Count 10.5 Red Blood Count 4.39 L Hemoglobin 13.1 L Hematocrit 39.7 L Mean Corpuscular Volume 90.3 Mean Corpuscular Hemoglobin 29.8 Mean Corpuscular Hemoglobin Concent 33.0 Red Cell Distribution Width 14.0 Platelet Count 347 Mean Platelet Volume 7.2 L Neutrophils (%) (Auto) 59.4 Lymphocytes (%) (Auto) 21.8 Monocytes (%) (Auto) 14.9 H Eosinophils (%) (Auto) 3.5 Basophils (%) (Auto) 0.4 Neutrophils # (Auto) 6.3 Lymphocytes # (Auto) 2.3 Monocytes # (Auto) 1.6 H Eosinophils # (Auto) 0.4 Basophils # (Auto) 0.0 CBC Comment Sodium Level 139 Potassium Level 3.6 Chloride Level 105 Carbon Dioxide Level 26.1 Anion Gap 8 Blood Urea Nitrogen 25 H Creatinine 1.12 H Estimated GFR/1.73 m2 65 BUN/Creatinine Ratio 22.3 H Glucose Level 206 H Calcium Level 8.5 Troponin I High Sensitivity 4 25 26 Pro-B-Type Natriuretic Peptide 217 H Albumin 2.9 L Chemistry Comments Troponin I High Sens Percent Delta 525 4 Troponin I Hi Sens Absolute Change 21 1 Medical Decision Making Findings Differential diagnosis includes but is not limited to: Acute coronary syndrome, acute COPD exacerbation, acute respiratory failure, acute congestive heart failure, pneumonia, pleural effusion, acute kidney injury, electrolyte abnormalities EKG independent interpretation: Performed at 11:05 p.m.. Sinus tachycardia, heart rate 116, right bundle-branch block, normal axis Chest x-ray, single view, indication: Shortness a breath Independent interpretation: Hyperinflation, flat hemidiaphragms, consistent with COPD, no infiltrates, normal mediastinum, normal cardiac silhouette, no congestive heart failure. No acute cardiopulmonary process. Laboratory data independent interpretation: CBC: Unremarkable, hemoglobin just below normal at 13.1 CMP: Unremarkable, BUN is mildly elevated at 25, creatinine mildly elevated at 1.12 serum glucose elevated at 206 1st troponin: 4 2nd troponin: 25 3rd troponin: 26 Emergency department course/medical decision-making: Patient presents with the acute shortness of breath. History and physical exam is consistent with the acute COPD exacerbation. There is no evidence of congestive heart failure. Do not suspect acute coronary syndrome. Patient's EKG was read out by the computer as possible posterior NC. However this does not appear to be the case. Patient's breathing has improved. Patient is given Solu-Medrol 125 mg IV, and Zithromax 500 mg p.o.. Patient was given a DuoNeb upon arrival. Patient has not required any supplemental oxygen. Patient is breathing normally now with a pulse ox of 93% on room air while sleeping. Patient is stable for discharge. Patient will be given a prescription for prednisone, Ventolin for his nebulizer machine and Zithromax. Departure Time of Disposition: 01:51 Disposition: 01 HOME / SELF CARE / HOMELESS Impression: Primary Impression: Acute exacerbation of chronic obstructive airways disease Condition: Improved Discharge Instructions: Chronic Obstructive Pulmonary Disease Exacerbation, [id number] Additional Instructions: RETURN TO THE EMERGENCY DEPARTMENT IF YOUR BREATHING GETS WORSE OR IF YOUR CHEST PAIN RETURNS. Prescriptions Albuterol Sulfate Nebs* (Proventil Nebs*) 2.5 Mg/0.5 Ml Vial.neb 2.5 MG IH Q4H PRN for SOB or wheezing, #30 EACH Prov: SOFÍA LLANOS MD 08/29/24 Azithromycin (Zithromax) 250 Mg Tablet 1 TAB PO UD for 5 Days, #6 TAB 2 the first day followed by 1 for days 2-5 Prov: SOFÍA LLANOS MD 08/29/24 Prednisone* (Prednisone*) 20 Mg Tablet 1 TAB PO Q12H for 5 Days, #10 TAB Prov: SOFÍA LLANOS MD 08/29/24 Education Educated: Patient Educated regarding: diagnosis, treatment, need for follow up Signature Scribe Signature: NO SCRIBE Attestation: NO SCRIBE SOFÍA LLANOS MD Aug 28, 2024 23:23
[2024-08-28 23:48] LABS: BASOPHILS % (AUTO) 0.4 % (0-1); EOSINOPHILS # (AUTO) 0.4 X10'3 (0-0.9); EOSINOPHILS % (AUTO) 3.5 % (0-6); HEMATOCRIT 39.7 % (42.0-52.0); HEMOGLOBIN 13.1 g/dl (14.0-17.9); LYMPHOCYTES # (AUTO) 2.3 X10'3 (1.1-4.8); LYMPHOCYTES % (AUTO) 21.8 % (21-51); MEAN CORPUSCULAR HEMOGLOBIN 29.8 PG (27.0-31.0); MEAN CORPUSCULAR VOLUME 90.3 FL (78-98); MEAN PLATELET VOLUME 7.2 FL (7.4-10.4); MONOCYTES # (AUTO) 1.6 X10'3 (0-0.9); MONOCYTES % (AUTO) 14.9 % (2-12); NEUTROPHILS # (AUTO) 6.3 X10'3 (1.8-7.7); NEUTROPHILS % (AUTO) 59.4 % (42-75); PLATELET COUNT 347 X10'3 (140-440); RED BLOOD COUNT 4.39 X10'6 (4.70-6.10); WHITE BLOOD COUNT 10.5 X10'3 (4.5-11.0)
--- NOTE | 2024-08-28 23:50 | RADIOLOGY REPORT ---
CHEST RADIOGRAPH Indication: CP Technique: Single frontal view of the chest was obtained COMPARISON: DI CHEST,SINGLE VIEW on DOS: 08/20/24, DI CHEST,SINGLE VIEW on DOS: 08/04/24, DI CHEST,SINGL E VIEW on DOS: 07/23/24, DI CHEST,SINGLE VIEW on DOS: 06/05/24, DI CHEST,SINGLE VIEW on DOS: 05/29/24 FINDINGS: Lines and Tubes: None Lungs: Clear Pleura: No effusion. No pneumothorax. Cardiomediastinal contours: Unremarkable Bones: Unremarkable IMPRESSION: 1. No acute disease.
[2024-08-29 00:12] LABS: ALBUMIN 2.9 G/DL (3.4-5.0); ANION GAP 8 (8-16); BLOOD UREA NITROGEN 25 MG/DL (7-18); BUN/CREATININE RATIO 22.3 (10.0-20.0); CALCIUM 8.5 MG/DL (8.5-10.1); CHLORIDE 105 MMOL/L (99-107); CREATININE 1.12 MG/DL (0.60-1.10); GLUCOSE 206 MG/DL (70-104); POTASSIUM 3.6 MMOL/L (3.5-5.1); PRO BRAIN NATRIURETIC PEPTIDE 217 PG/ML (0-125); SODIUM 139 MMOL/L (135-145); TOTAL CARBON DIOXIDE 26.1 MMOL/L (24-32); eCRCL 54 ML/MIN; eGFR 65 ML/MIN
[2024-08-29] MEDS ORDERED: AZIT250T PO (01:53)
[2024-08-29] MEDS ORDERED: ALB0.5UD IH (01:53)
[2024-08-29] MEDS ORDERED: PRED20TA PO (01:53)
[2024-08-29] MEDS: azithromycin 250mg tablet PO ONE (03:32)
[2024-08-29] MEDS: methylPREDNISolone sod succ 125mg/2ml vial IV ONE (03:33)
[2024-08-29 04:26] VITALS: PULSE 105; RESP 22; O2SAT 95
[2024-08-29] MEDS: ipratropium/albuterol 3ml nebule NEB STA (04:26)
[2024-08-29 04:33] VITALS: PULSE 102; RESP 22; O2SAT 98
[2024-08-29 04:41] VITALS: BP 109/66; PULSE 97; RESP 18; TEMP 98.8; O2SAT 98
== END 2024-08-29 04:43 | disposition home or self-care (01) ==
LOC: ER 23:01
DX: J44.1 Chronic obstructive pulmonary disease with (acute) exacerbation (principal); E11.9 Type 2 diabetes mellitus without complications; Z86.73 Personal history of transient ischemic attack (TIA), and cerebral infarction without residual deficits; Z87.891 Personal history of nicotine dependence; Z90.49 Acquired absence of other specified parts of digestive tract
CPT/HCPCS: 36415; 71045; 80048; 83880; 84484; 85025; 93005; 94640; 96374; 99285; J2919

== ENCOUNTER 2024-11-08 14:01 | Outpatient (CLI) | payer MEDICARE ==
[~2024-11-08 14:01] MED LIST changes: -PRED10TA23 PO
[2024-11-08 14:34] LABS: ABG BASE EXCESS -0.6 mmol/L (-2.0-3.0); ABG HCO3 23.4 mmol/L (21.0-28.0); ABG OXYGEN SATURATION 94.4 % (94.0-98.0); ABG PCO2 (T) 36.6 mmHg (35.0-48.0); ABG PH (T) 7.423 (7.350-7.450); ABG PO2 (T) 71.3 mmHg (83.0-108.0); ALLEN'S TEST POSITIVE; FCOHb 0.2 % (0.5-1.5); FHHb 5.6 % (0.0-5.0); FIO2 21.0 mmHg/%; FMetHb 0.1 % (0.0-1.5); FO2Hb 94.1 % (94.0-98.0); MODE ROOM AIR; PATIENT TEMPERATURE 37.0; TOTAL HEMOGLOBIN 15.2 G/dl (13.5-17.5)
== END 2024-11-08 23:59 | disposition home or self-care (01) ==
LOC: LAB 14:01
PROVIDERS: ATTEND Physician Assistant
DX: E11.9 Type 2 diabetes mellitus without complications (principal); I10 Essential (primary) hypertension; D50.9 Iron deficiency anemia, unspecified; E55.9 Vitamin D deficiency, unspecified; D51.9 Vitamin B12 deficiency anemia, unspecified; E78.00 Pure hypercholesterolemia, unspecified; N30.01 Acute cystitis with hematuria; N40.0 Benign prostatic hyperplasia without lower urinary tract symptoms; Z00.01 Encounter for general adult medical examination with abnormal findings
CPT/HCPCS: 36600; 82803; 85018

== ENCOUNTER 2024-11-20 22:38 | Emergency (ER) | payer MEDICARE ==
[~2024-11-20] VITALS: Ht 170.2 cm; Wt 67.0 kg
--- NOTE | 2024-11-20 22:45 | ELECTROCARDIOGRAPH REPORT ---
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
[2024-11-20 23:03] LABS: MEAN PLATELET VOLUME 6.9 FL (7.4-10.4); RED CELL DISTRIBUTION WIDTH 15.2 % (11.5-14.5)
--- NOTE | 2024-11-20 23:14 | RADIOLOGY REPORT ---
CHEST RADIOGRAPH Indication: CP Technique: Single frontal view of the chest was obtained COMPARISON: DI CHEST,SINGLE VIEW on DOS: 08/28/24, DI CHEST,SINGLE VIEW on DOS: 08/20/24, DI CHEST,SINGL E VIEW on DOS: 08/04/24, DI CHEST,SINGLE VIEW on DOS: 07/23/24, DI CHEST,SINGLE VIEW on DOS: 06/05/24 FINDINGS: Lines and Tubes: None Lungs: Clear Pleura: No effusion. No pneumothorax. Cardiomediastinal contours: Unremarkable Bones: Unremarkable IMPRESSION: 1. No acute disease.
[2024-11-20 23:22] LABS: CREATININE 1.04 MG/DL (0.60-1.10); PRO BRAIN NATRIURETIC PEPTIDE 493 PG/ML (0-125); TOTAL CARBON DIOXIDE 27.8 MMOL/L (24-32); eCRCL 60 ML/MIN; eGFR 70 ML/MIN
--- NOTE | 2024-11-21 02:28 | Physician Documentation ---
History of Present Illness ~ Chief Complaint: Chest Pain Stated Complaint: ABD PAIN M ALS Time Seen by MD: 22:46 Primary Medical Doctor: NONE Mode of Arrival: EMS HPI 74 year old male reports epigastric chest pain since the morning. Denies fever, cough, N/V/D, shortness of breath. His pain has improved since it started. He has a hard time describing his pain further. Medication Reconciliation Allergies: Coded Allergies: No Known Allergies (Unverified , 11/20/24) Scheduled Cefdinir (Cefdinir), 1 CAP PO Q12H Glyburide/Metformin HCl (Glyburid-Metformin 1.25-250 mg), 1 TAB PO Q12H L. 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, Headache, COPD, Pneumonia Past Surgical History: appendectomy, cholecystectomy Patient History: FH: stroke MOTHER Smoking Status: Never smoker Alcohol Use: None Drug Use: none Lives with: Family Lives In: Home Occupation: unemployed Review of Systems All Other Systems at this time: Reviewed and Negative Physical Exam Vital Signs: RN Vital Signs have been reviewed: Yes, Temperature: 98.0, Heart Rate: 88, Respiratory Rate: 16, BP: 152/90, Pulse Oximetry: 97, Weight: 67.000 Physical Exam HEENT: PERRL, moist oral mucosa, EOMI Pulmonary: No respiratory distress CTAB Cardiac: RRR, no murmur, rub or gallop MSK: no deformity Skin: w/d/i, no rash Neuro: alert, nonfocal Psych: normal affect Progress Results/Orders Results/Orders Orders - HELENA RODRIGUES MD Chest,Single View (11/20/24 22:43) Monitor (11/20/24 22:43) Saline Lock (11/20/24 22:43) Oxygen (11/20/24 22:43) Completed Orders - HELENA RODRIGUES MD Chest,Single View (11/20/24 22:43) Cbc/Diff (11/20/24 22:43) BMP (11/20/24 22:43) PBNP (11/20/24 22:43) Electrocardiogram (11/20/24 22:43) Hs Troponin I W Calculations (11/20/24 22:43) Hs Troponin I W Calculations (11/21/24 00:43) Lipase (11/20/24 22:46) Vital Signs 11/20/24 11/20/24 11/20/24 11/21/24 22:39 22:50 23:37 00:26 Temp 98.0 Pulse 88 87 88 Resp 16 16 18 16 B/P (MAP) 166/86 152/1 (51) 152/90 (110) Pulse Ox 99 97 97 Laboratory Tests Test 11/20/24 22:52 11/21/24 00:48 White Blood Count 7.5 Red Blood Count 4.90 Hemoglobin 14.7 Hematocrit 43.6 Mean Corpuscular Volume 89.0 Mean Corpuscular Hemoglobin 30.0 Mean Corpuscular Hemoglobin Concent 33.8 Red Cell Distribution Width 15.2 H Platelet Count 318 Mean Platelet Volume 6.9 L Neutrophils (%) (Auto) 72.9 Lymphocytes (%) (Auto) 15.1 L Monocytes (%) (Auto) 9.2 Eosinophils (%) (Auto) 2.3 Basophils (%) (Auto) 0.5 Neutrophils # (Auto) 5.5 Lymphocytes # (Auto) 1.1 Monocytes # (Auto) 0.7 Eosinophils # (Auto) 0.2 Basophils # (Auto) 0.0 CBC Comment Sodium Level 134 L Potassium Level 3.9 Chloride Level 99 Carbon Dioxide Level 27.8 Anion Gap 7 L Blood Urea Nitrogen 11 Creatinine 1.04 Estimated GFR/1.73 m2 70 BUN/Creatinine Ratio 10.6 Glucose Level 139 H Calcium Level 9.1 Troponin I High Sensitivity 20 20 Pro-B-Type Natriuretic Peptide 493 H Albumin 3.6 Lipase 22 Chemistry Comments Troponin I High Sens Percent Delta 0 Troponin I Hi Sens Absolute Change 0 Medical Decision Making Findings 74 year old male with chest pain. CXR interpreted by me demonstrated normal c ontours, no PTX or PNA. EKG interpreted by me demonstrated NSR @ 86/min, no STEMI criteria, no dysrhythmia. Labs also returned negative for acute findings. On reevaluation the patient reported that he felt significantly improved. tolerated PO, discharged with return precautions. Differential Dx:Considerations: Include: angina, cholelithiasis, esophageal reflux/spasm, herpes zoster, myocardial infarction, pericarditis, pneumonia, pneumothorax, pulmonary embolus Departure Disposition: 01 HOME / SELF CARE / HOMELESS Impression: Primary Impression: Acute chest pain Condition: Stable Discharge Instructions: Nonspecific Chest Pain, Adult Referrals: NO PRIMARY CARE PROVIDER (PCP) Education Educated: Patient Educated regarding: diagnosis, treatment, prognosis, need for follow up Signature Scribe Signature: . Attestation: . HELENA RODRIGUES MD Nov 21, 2024 02:28
[2024-11-21 04:52] VITALS: BP 136/80; PULSE 74; RESP 16; TEMP 98; O2SAT 80
[2024-11-21] MEDS ORDERED: PANT-47 PO (19:44)
== END 2024-11-21 04:54 | disposition home or self-care (01) ==
LOC: ER 22:39
DX: R07.9 Chest pain, unspecified (principal); R10.13 Epigastric pain; R06.02 Shortness of breath; J44.9 Chronic obstructive pulmonary disease, unspecified; Z86.73 Personal history of transient ischemic attack (TIA), and cerebral infarction without residual deficits; Z90.49 Acquired absence of other specified parts of digestive tract
CPT/HCPCS: 36415; 71045; 80048; 83690; 83880; 84484; 85025; 93005; 99285

== ENCOUNTER 2024-11-21 13:54 | Emergency (ER) | payer MEDICARE ==
[~2024-11-21] VITALS: Ht 170.2 cm; Wt 71.0 kg
--- NOTE | 2024-11-21 14:26 | ELECTROCARDIOGRAPH REPORT ---
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
--- NOTE | 2024-11-21 14:41 | RADIOLOGY REPORT ---
EXAM: DI CHEST,SINGLE VIEW HISTORY: CP TECHNIQUE: 1 view of the chest COMPARISON: DI CHEST,SINGLE VIEW on DOS: 11/20/24 FINDINGS/IMPRESSION: LUNGS: No pleural effusion, consolidation, or pneumothorax MEDIASTINUM: Unremarkable BONES: No acute osseous abnormality OTHER: None
[2024-11-21 14:43] LABS: MEAN PLATELET VOLUME 6.9 FL (7.4-10.4); RED CELL DISTRIBUTION WIDTH 15.1 % (11.5-14.5)
[2024-11-21 15:07] LABS: CREATININE 0.91 MG/DL (0.60-1.10); PRO BRAIN NATRIURETIC PEPTIDE 582 PG/ML (0-125); TOTAL CARBON DIOXIDE 28.3 MMOL/L (24-32); eCRCL 69 ML/MIN; eGFR 82 ML/MIN
[2024-11-21] MEDS: ondansetron/PF 4mg/2ml inj IV ONE (17:53)
[2024-11-21] MEDS ORDERED: iohexol 300mg/ml 100ml inj. ONE (18:07)
--- NOTE | 2024-11-21 19:01 | RADIOLOGY REPORT ---
EXAM: CT CT ABDOMEN PELVIS W/ IV CONTRAST HISTORY: Upper abdominal pain TECHNIQUE: Volumetric multidetector CT images of the abdomen and pelvis were obtained before and afte r the administration of intravenous contrast. All CT scans at this facility use dose modulation, iter ative reconstruction, and/or weight based dosing when appropriate to reduce radiation dose to as low as reasonably achievable. COMPARISON: CT CTA CHEST ABDOMEN PELVIS W/ IV CONTRAST on DOS: 06/07/24 FINDINGS: [LOWER CHEST]: Peribronchial thickening in bilateral lung bases with minimal possible right-sided sub pleural reticulation [LIVER]: Normal hepatic size without suspicious focal lesion. [GALLBLADDER AND BILIARY TREE]: Appearance of prior cholecystectomy however multiple stones likely re sidual along the cystic duct [SPLEEN]: Unremarkable. [PANCREAS]: Unremarkable. [ADRENAL GLANDS]: Unremarkable [KIDNEYS]: No hydronephrosis. No nephroureterolithiasis. No suspicious focal lesion. [BLADDER]: Unremarkable for the degree distention. [REPRODUCTIVE ORGANS]: Mild to moderate prostatomegaly. [BOWEL/MESENTERY]: Stomach is normal. No CT evidence of bowel obstruction. prior appendectomy. Mild s igmoid diverticulosis. [ASCITES]: Absent [LYMPHADENOPATHY]: No pathologically enlarged lymph nodes by CT size criteria [VASCULATURE]: No aneurysmal dilatation. [ABDOMINAL WALL]: Unremarkable. [MUSCULOSKELETAL]: No acute fracture or aggressive focal osseous lesion. Multifocal degenerative rosales ge of the visualized spine. IMPRESSION: 1. No CT evidence of an acute abdominal/pelvic process. 2. Peribronchial thickening with possible right-sided subpleural reticulation. 3. Correlate for acute bronchitis. 4. Multiple stones along the remnant cystic duct. 5. Mild to moderate prostatomegaly.
--- NOTE | 2024-11-21 19:28 | Physician Documentation ---
History of Present Illness ~ Chief Complaint: Chest Pain Stated Complaint: ABDOMINAL PAIN Time Seen by MD: 19:27 Primary Medical Doctor: NONE Mode of Arrival: EMS HPI Patient presents to the emergency room with continued abdominal pain since yesterday. He was seen here yesterday police see previous notes for more investigation. He is status post cholecystectomy years ago in 2021. Denies history of previous episodes. Medication Reconciliation Allergies: Coded Allergies: No Known Allergies (Unverified , 11/20/24) Scheduled Cefdinir (Cefdinir), 1 CAP PO Q12H Glyburide/Metformin HCl (Glyburid-Metformin 1.25-250 mg), 1 TAB PO Q12H L. 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 Eyes: Conjunctival normal. EOMI. PERRL. ENT: Mucous membranes moist. Neck: Supple, trachea is midline. Chest: Clear to auscultation bilaterally without rales, rhonchi, or wheezes. There is no accessory muscle use or retractions. Cardiac: RRR without murmurs, gallops, or rubs. Abd: Soft, nondistended, positive tenderness to palpation to epigastric area Progress Results/Orders Results/Orders Orders - CANDELARIO ALEXANDER MD Hospitalist (11/21/24 19:41) Fill Out Med Reconciliation (11/21/24 19:41) Medications Received in ER Medications (Trade) Dose Ordered Sig/Terence Route PRN Reason Start Time Stop Time Status Last Admin Dose Admin (Zofran 4mg/2ml vial) 4 mg ONCE ONCE IV 11/21/24 17:50 11/21/24 17:51 DC 11/21/24 17:53 4 MG (Dilaudid inj.) 1 mg ONCE ONCE IV 11/21/24 17:50 11/21/24 17:51 DC 11/21/24 17:53 1 MG Vital Signs 11/21/24 11/21/24 11/21/24 11/21/24 13:57 14:10 14:10 15:18 Pulse 91 89 Resp 20 20 16 B/P (MAP) 153/69 162/94 (116) Pulse Ox 95 98 O2 Delivery Room Air* FiO2 N/A N/A 11/21/24 11/21/24 11/21/24 11/21/24 16:33 17:53 18:02 18:03 Pulse 79 86 Resp 13 18 18 16 B/P (MAP) 136/73 (94) 162/93 (116) Pulse Ox 98 98 11/21/24 19:33 Pulse 79 Resp 8 B/P (MAP) 166/90 (115) Pulse Ox 97 Laboratory Tests Test 11/21/24 14:31 11/21/24 14:32 11/21/24 16:23 11/21/24 17:32 White Blood Count 6.7 Red Blood Count 4.47 L Hemoglobin 13.5 L Hematocrit 39.8 L Mean Corpuscular Volume 89.1 Mean Corpuscular Hemoglobin 30.1 Mean Corpuscular Hemoglobin Concent 33.8 Red Cell Distribution Width 15.1 H Platelet Count 303 Mean Platelet Volume 6.9 L Neutrophils (%) (Auto) 62.0 Lymphocytes (%) (Auto) 22.2 Monocytes (%) (Auto) 12.2 H Eosinophils (%) (Auto) 2.9 Basophils (%) (Auto) 0.7 Neutrophils # (Auto) 4.2 Lymphocytes # (Auto) 1.5 Monocytes # (Auto) 0.8 Eosinophils # (Auto) 0.2 Basophils # (Auto) 0.0 CBC Comment Troponin I High Sensitivity 18 20 20 Troponin I High Sens Percent Delta 10 11 0 Troponin I Hi Sens Absolute Change -2 2 0 Sodium Level 140 Potassium Level 3.8 Chloride Level 105 Carbon Dioxide Level 28.3 Anion Gap 7 L Blood Urea Nitrogen 14 Creatinine 0.91 Estimated GFR/1.73 m2 82 BUN/Creatinine Ratio 15.4 Glucose Level 110 H Calcium Level 8.5 Magnesium Level 2.3 Pro-B-Type Natriuretic Peptide 582 H Albumin 3.1 L Lipase 15 L Chemistry Comments Test 11/21/24 18:31 Lactic Acid Level 1.0 EKG/XRAY/CT/US/VASC/MRI EKG : Additional Comment EKG interpreted by myself shows time of 1424 rate of 90 sinus rhythm normal axis right bundle-branch block, no ST changes CT : Impression Exam: CT ABDOMEN PELVIS EXAM: CT CT ABDOMEN PELVIS W/ IV CONTRAST HISTORY: Upper abdominal pain TECHNIQUE: Volumetric multidetector CT images of the abdomen and pelvis were obtained before and after the administration of intravenous contrast. All CT scans at this facility use dose modulation, iterative reconstruction, and/or weight based dosing when appropriate to reduce radiation dose to as low as reasonably achievable. COMPARISON: CT CTA CHEST ABDOMEN PELVIS W/ IV CONTRAST on DOS: 06/07/24 FINDINGS: [LOWER CHEST]: Peribronchial thickening in bilateral lung bases with minimal possible right-sided subpleural reticulation [LIVER]: Normal hepatic size without suspicious focal lesion. [GALLBLADDER AND BILIARY TREE]: Appearance of prior cholecystectomy however multiple stones likely residual along the cystic duct [SPLEEN]: Unremarkable. [PANCREAS]: Unremarkable. [ADRENAL GLANDS]: Unremarkable [KIDNEYS]: No hydronephrosis. No nephroureterolithiasis. No suspicious focal lesion. [BLADDER]: Unremarkable for the degree distention. [REPRODUCTIVE ORGANS]: Mild to moderate prostatomegaly. [BOWEL/MESENTERY]: Stomach is normal. No CT evidence of bowel obstruction. prior appendectomy. Mild sigmoid diverticulosis. [ASCITES]: Absent [LYMPHADENOPATHY]: No pathologically enlarged lymph nodes by CT size criteria [VASCULATURE]: No aneurysmal dilatation. [ABDOMINAL WALL]: Unremarkable. [MUSCULOSKELETAL]: No acute fracture or aggressive focal osseous lesion. Multifocal degenerative change of the visualized spine. IMPRESSION: 1. No CT evidence of an acute abdominal/pelvic process. 2. Peribronchial thickening with possible right-sided subpleural reticulation. 3. Correlate for acute bronchitis. 4. Multiple stones along the remnant cystic duct. 5. Mild to moderate prostatomegaly. Medical Decision Making Findings Patient presents to the emergency room with epigastric pain as per HPI. Differentials include but are not limited to gastritis cholecystitis small bowel obstruction diverticulitis pancreatitis therefore emergent labs and imaging indicated. Labs reassuring as his imaging. Unknown cause for patient's pain. Possibly gastritis. Consideration of ACS however pain is epigastric in nature and atypical follow up patient does have a heart score of four. Departure Disposition: HOME / SELF CARE / HOMELESS Impression: Primary Impression: Chest pain Additional Impression: Abdominal pain Condition: Stable Discharge Instructions: Abdominal Pain, Adult, Nonspecific Chest Pain, Adult Referrals: NO PRIMARY CARE PROVIDER (PCP) Prescriptions Pantoprazole Sodium (PROTONIX tablet) 40 Mg Tablet.dr 1 TAB PO DAILY for 30 Days, #30 TAB 0 Refills Prov: CANDELARIO ALEXANDER MD 11/21/24 Education Educated: Patient Educated regarding: diagnosis, need for follow up Signature Scribe Signature: No scribe Attestation: The note accurately reflects work and decisions made by me.Candelario Alexander MD 11/21/24 19:41 CANDELARIO ALEXANDER MD Nov 21, 2024 19:28
[2024-11-21] MEDS ORDERED: PANT-47 PO (19:44)
[2024-11-21] MEDS ORDERED: morphine 4 MG/ML inj SYRINge IV ONE (19:45)
[2024-11-21] MEDS: LIDOcaine 2% Viscous 15ml cup MM ONE (19:59)
[2024-11-21] MEDS: mag hydrox/Alum hydrox/simeth 30ml oral suspension PO ONE (19:59)
[2024-11-21] MEDS: famotidine/PF 10 mg/ml inj IV ONE (20:01)
[2024-11-21] MEDS: ketorolac trometh 15mg/ml vial 15 MG/ML ML IV ONE (20:03)
[2024-11-21] MEDS ORDERED: ondansetron/PF 4mg/2ml inj IV PRN (20:10)
[2024-11-21] MEDS ORDERED: HYDROmorphone inj. 0.5 MG/0.5 ML DISP.SYRIN IV PRN (20:10)
[2024-11-21] MEDS ORDERED: potassium Cl 40MEQ/1/2NS 520ml 520 ML IV PRN (20:10)
[2024-11-21] MEDS ORDERED: potassium Cl 20 mEq SR tablet PO PRN ×2 (20:10)
[2024-11-21] MEDS ORDERED: magnesium sulf-water 4G/100mL 100 ML IV PRN (20:10)
[2024-11-21] MEDS ORDERED: HYDROmorphone/PF 0.2 MG/ML SYRINGE IV PRN (20:10)
[2024-11-21] MEDS ORDERED: magnesium hydroxide 30ml (MOM) UD suspension PO PRN (20:10)
[2024-11-21] MEDS ORDERED: HYDROcodone/acetaminophen 5mg/325mg tablet PO PRN (20:10)
[2024-11-21] MEDS ORDERED: HYDROcodone/acetaminophen 10/325mg tab PO PRN (20:10)
[2024-11-21] MEDS ORDERED: mag hydrox/Alum hydrox/simeth 30ml oral suspension PO PRN (20:10)
[2024-11-21] MEDS ORDERED: magnesium Cl slow-release 64mg tablet PO PRN (20:10)
[2024-11-21] MEDS ORDERED: magnesium sulf-water 2g/50mL 50 ML IV PRN (20:10)
[2024-11-21 20:31] VITALS: BP 166/90; PULSE 85; RESP 16; O2SAT 91
[2024-11-22] MEDS ORDERED: docusate sod 100mg capsule PO SCH (08:00)
[2024-11-22] MEDS ORDERED: K and/or MAG REPLACEMENT MC SCH (08:00)
== END 2024-11-21 20:33 | disposition home or self-care (01) ==
LOC: ER 13:54
DX: R07.9 Chest pain, unspecified (principal); R10.13 Epigastric pain; R06.02 Shortness of breath; J44.9 Chronic obstructive pulmonary disease, unspecified; Z86.73 Personal history of transient ischemic attack (TIA), and cerebral infarction without residual deficits; Z90.49 Acquired absence of other specified parts of digestive tract; Z79.899 Other long term (current) drug therapy
CPT/HCPCS: 36415; 71045; 74178; 80048; 83605; 83690; 83735; 83880; 84484; 85025; 93005; 96374; 96375; 99285; A6258; J1171; J1885; J2405; J2470; J3490; Q9967